=== PATIENT | male | born 1965 | race Caucasian/White ===

== ENCOUNTER 2016-04-29 09:47 | Emergency (ER) | payer OTHER ==
[2016-04-29] MEDS ORDERED: Aspirin TAB* 325 MG PO ONE (10:43)
[2016-04-29] MEDS ORDERED: Aspirin Low Dose CHEW TAB* 81 MG PO ONE ×2 (10:48→10:56)
[2016-04-29] MEDS ORDERED: Aspirin Low Dose CHEW TAB* 81 MG ONE (10:49)
--- NOTE | 2016-04-29 10:51 | UC ---
Lenny Liu Adam, scribed for Chi Brown MD on 04/29/16 at 0954 . Cardiac HPI - HPI Summary HPI Summary: Pt is a 50 year old male presenting with CP. This morning at 03:00 the pt woke up with dull throbbing/aching pain under his left breast and the pain has been constant since then. It is a 2-3/10 in severity. It does not radiate to his jaw or arm but the pt also c/o back pain which has been new in the past couple of days. The CP is not worse with breathing or changes in position. He has had sharp chest pain in the past that could be musculoskeletal but nothing like this before. Pt also c/o cough and rhinorrhea. He denies any numbness, tingling , SOB or N/V/D. PMHx is significant for depression and anxiety including admissions. Pt states that he exercises daily and he denies any pain while he was out walking yesterday. He states that he took appetite suppressant drugs for 3-4 days, ending yesterday morning. He also took himself off Keppra on . His PMHx also includes seizures. He denies any cardiac Hx or any Hx of PNA. He does not currently have a PCP. He is a former tobacco user. Pt states that his BP was 204/131 yesterday. BP at urgent care is 155/101. Pulse ox 99, afebrile, not tachycardic. - History of Current Complaint Stated Complaint: CHEST PAIN Hx Obtained From: Patient Onset/Duration: Sudden Onset, Lasting Hours, Still Present Timing: Constant Initial Severity: Moderate Current Severity: Moderate Pain Intensity: 2 Chest Pain Location: Left Anterior Character: Dull/Aching Aggravating: Nothing Alleviating: Nothing Associated Signs & Symptoms: Positive: Cough - Allergy/Home Medications Allergies/Adverse Reactions: Allergies Allergy/AdvReac Type Severity Reaction Status Date / Time Aripiprazole [From Abilify] Allergy Unknown Verified 04/29/16 10:04 Reaction Details Lamotrigine [From Lamictal] Allergy Unknown Verified 04/29/16 10:04 Reaction Details Ziprasidone [From Geodon] Allergy Unknown Verified 04/29/16 10:04 Reaction Details Home Medications: Home Medications Appetite Suppressant 04/29/16 [History] Bupropion XL (NF) [Wellbutrin XL (NF)] 1 tab PO DAILY 04/29/16 [History Confirmed 04/29/16] Fluoxetine HCl [Prozac] 1 tab PO 04/29/16 [History] Fluoxetine HCl [Prozac] 1 tab PO 04/29/16 [History] Ibuprofen [Advil] 3 tab PO PRN 04/29/16 [History] Levetiracetam [Keppra-] 1 tab PO BID 04/29/16 [History Confirmed 04/29/16] Mirtazapine [Remeron] 1 tab PO 04/29/16 [History] Pantoprazole TAB (NF) [Protonix TAB (NF)] 1 tab PO DAILY 04/29/16 [History Confirmed 04/29/16] Zolpidem Tartrate [Ambien] 1 tab PO 04/29/16 [History] PMH/Surg Hx/FS Hx/Imm Hx Endocrine History Of: Denies: Diabetes, Thyroid Disease Cardiovascular History Of: Reports: Hypertension - boderline no medication Denies: Cardiac Disorders, Pacemaker/ICD, Congestive Heart Failure, Deep Vein Thrombosis Respiratory History Of: Denies: COPD, Asthma, Pneumonia, Pulmonary Embolism GI/ History Of: Denies: Ulcer, Gastrointestinal Bleed, Gall Bladder Disease, Kidney Stones Neurological History Of: Reports: Seizures Denies: TIA, CVA, Dementia Psychological History Of: Reports: Anxiety, Depression Denies: Bipolar Disorder, Schizophrenia Cancer History Of: Denies: Lung Cancer Other History Of: Negative For: Anticoagulant Therapy - Surgical History Surgical History: Yes Surgery Procedure, Year, and Place: left knee - Family History Known Family History: Positive: Other - Depression, EtOH abuse. - Social History Occupation: Unemployed Lives: Alone Alcohol Use: None Alcohol Amount: pt states none Substance Use Type: Prescribed Substance Use Comment - Amount & Last Used: hx of poly-Rx abuse Smoking Status (MU): Former Smoker Type: Cigarettes Amount Used/How Often: 5-10 cigs a day Have You Smoked in the Last Year: No When Did the Patient Quit Smoking/Using Tobacco: 2006 - Immunization History Most Recent Influenza Vaccination: Never Most Recent Tetanus Shot: Unsure Most Recent Pneumonia Vaccination: Never Review of Systems ENT: Nasal Discharge Respiratory: Cough Cardiovascular: Chest Pain Gastrointestinal: Negative Musculoskeletal: Myalgia - Back Neurological: Negative All Other Systems Reviewed And Are Negative: Yes Physical Exam Triage Information Reviewed: Yes Appearance: Well-Appearing, No Pain Distress, Well-Nourished Vital Signs: Initial Vital Signs Temp 98.4 F 04/29/16 09:55 Pulse 87 04/29/16 09:55 Resp 18 04/29/16 09:55 BP 155/101 04/29/16 09:55 Pulse Ox 99 04/29/16 09:55 Eyes: Positive: Conjunctiva Clear ENT: Positive: Hearing grossly normal, Pharynx normal, TMs normal. Negative: Muffled/hoarse voice Neck: Positive: Supple, No Lymphadenopathy Respiratory: Positive: Chest non-tender, Lungs clear, Normal breath sounds, No respiratory distress Cardiovascular: Positive: RRR, No Murmur Abdomen Description: Positive: Nontender, No Organomegaly, Soft Musculoskeletal: Positive: Strength Intact, ROM Intact Neurological: Positive: Alert Psychological: Positive: Age Appropriate Behavior Skin: Negative: rashes Diagnostics - EKG Cardiac Rate: NL - 86 BPM Cardiac Rhythm: Sinus: Normal - 09:50 - Assessment/Plan Course Of Treatment: EKG showed no acute ischemia. I discussed the patient's condition with the patient. Althought he is at low risk for a cardiovascular event, the fact that his pain has been present for 8 hours and that this is an unusal pain for him with no obvious musculoskeletal cause requires that further testing rule out a cardiac or respiratory event. - Differential Diagnoses - Chest Pain Differential Diagnosis/HQI/PQRI: Other: - Musculoskeletal pain vs cardiovascular based pain - Clinical Impression Provider Diagnoses: Atypical Chest Pain Discharge - Discharge Plan Condition: Stable Disposition: [facility] Discharge Disposition Comment: To [facility] ED Referrals: No Primary Care Phys,NOPCP [Primary Care Provider] - Additional Instructions: DISCUSSED: LOW RISK CHEST PAIN. TO ED FOR FURTHER EVALUATION AND TREATMENT. The documentation as recorded by the Lenny landry Adam accurately reflects the service I personally performed and the decisions made by me, Chi Brown MD.
[2016-04-29 11:20] VITALS: BP 152/99
== END 2016-04-29 11:21 | disposition short-term general hospital (02) ==
LOC: UCEAST 09:47
DX: R07.89 Other chest pain (principal); Z87.891 Personal history of nicotine dependence
CPT/HCPCS: 93005; 99214; A9270-GY; G0463

== ENCOUNTER 2016-04-29 12:00 | Observation (INO) | payer OTHER ==
[2016-04-29 12:54] LABS: Hematocrit 38 % (42-52); Hemoglobin 12.6 g/dl (14.0-18.0); Mean Corpuscular HGB Conc 33 g/dl (31-36); Mean Corpuscular Hemoglobin 26 pg (27-31); Mean Corpuscular Volume 78 fL (80-94); Red Cell Distribution Width 16 % (10.5-15); White Blood Count 9.8 10^3/ul (3.5-10.8)
[2016-04-29 12:55] LABS: Comments Flag Yes
[2016-04-29 12:56] LABS: Add Diff/Slide Review? Slide Review Added
--- NOTE | 2016-04-29 13:04 | RAD ---
INDICATION: Chest pain. COMPARISON: Comparison is made with prior study from September 10, 2015. TECHNIQUE: A portable view of the chest was obtained. FINDINGS: Cardiac and mediastinal contours appear to be within normal limits. The lungs are clear. No pleural effusion is seen. IMPRESSION: NO EVIDENCE FOR ACUTE DISEASE.
[2016-04-29 13:13] LABS: Mean Platelet Volume 8 um3 (7.4-10.4)
[2016-04-29 13:22] LABS: TSH (Thyroid Stimulating Horm) 2.67 mcIU/mL (0.34-5.60)
[2016-04-29 13:37] LABS: Albumin 3.9 g/dL (3.2-5.2); BUN/Creatinine Ratio 12.2 (8-20); C Reactive Protein 32.49 mg/L (< 5.00); Calcium 9.6 mg/dL (8.6-10.3); EGFR African American 126.9 (>60); EGFR Non-African American 98.7 (>60); Globulin 4.6 g/dL (2-4); Total Bilirubin 0.5 mg/dL (0.2-1.0); Total Protein 8.5 g/dL (6.4-8.9)
[2016-04-29 14:31] LABS: Troponin I 0.04 ng/mL (<0.04)
[2016-04-29] MEDS ORDERED: clonazePAM TAB(*) 1 MG PO ONE (14:49)
[2016-04-29] MEDS ORDERED: Nitroglycerin TAB 0.4 MG* 0.4 MG TAB SL ONE (14:49)
[2016-04-29] MEDS: NS 0.9% 1000 ML* 1,000 ML IV SCH ×2 (15:48→23:25)
[2016-04-29] MEDS ORDERED: Zolpidem TAB* 10 MG PO PRN (15:49)
[2016-04-29] MEDS ORDERED: clonazePAM TAB(*) 0.5 MG ONE (15:55)
[2016-04-29] MEDS: Metoprolol Tartrate TAB* 25 MG PO SCH ×2 (16:00→21:23)
[2016-04-29] MEDS ORDERED: clonazePAM TAB(*) 0.5 MG PO ONE (16:00)
--- NOTE | 2016-04-29 16:00 | ED ---
Remy Liu Anna, scribed for Gab Frausto MD on 04/29/16 at 1448 . HPI Chest Pain - HPI Summary HPI Summary: Patient is a 50 y/o male coming to [facility] presenting with sudden onset of constant, dull, throbbing chest pain that began at 100 this morning. The pain is of severity 5/10. He took Advil and went back to sleep. He woke up again at 300 with the same pain in the chest. He had taken appetite suppressant pills recently, 2 four days ago, none three days ago, one two days ago and one yesterday. He reports that this often results in high blood pressure for him, peaking at 204/131. Denies nausea, SOB. He took 4 Aspirin when he was seen at [facility]. The pain is exacerbated by deep breaths. He has high triglycerides and high cholesterol. At baseline, he has occasional sharp angina. His current pain is different. His family history is significant for HTN. - History of Current Complaint Chief Complaint: EDChestPainROMI Time Seen by Provider: 04/29/16 14:36 Hx Obtained From: Patient - Additional Pertinent History Primary Care Physician: [id number] - Allergy/Home Medications Allergies/Adverse Reactions: Allergies Allergy/AdvReac Type Severity Reaction Status Date / Time Aripiprazole [From Abilify] Allergy Unknown Verified 04/29/16 10:04 Reaction Details Lamotrigine [From Lamictal] Allergy Unknown Verified 04/29/16 10:04 Reaction Details Ziprasidone [From Geodon] Allergy Unknown Verified 04/29/16 10:04 Reaction Details PMH/Surg Hx/FS Hx/Imm Hx Endocrine/Hematology History: Denies: Hx Anticoagulant Therapy, Hx Blood Disorders, Hx Blood Transfusions, Hx Bone Marrow Disease, Hx Diabetes, Hx Systemic Lupus Erythematosus, Hx Sickle Cell Disease, Hx Thyroid Disease, Hx Anemia, Hx Unexplained Bleeding, Other Endocrine/Hematological Disorders Cardiovascular History: Reports: Hx Hypertension - boderline no medication Denies: Hx Aneurysm, Hx Angina, Hx Auto Implanted Cardiovert Defib, Hx Cardiac Arrest, Hx Cardiomegaly, Hx Congenital Heart Disease, Hx Congestive Heart Failure, Hx Coronary Artery Disease, Hx Deep Vein Thrombosis, Hx Embolism , Hx Hypercholesterolemia, Hx Hypotension, Hx Pacemaker/ICD, Hx Peripheral Vascular Disease, Hx Rheumatic Fever, Hx Syncope, Hx Valvular Heart Disease, Other Cardiovascular Problems/Disorders Respiratory History: Reports: Hx Seasonal Allergies Denies: Hx Asthma, Hx Chronic Bronchitis, Hx Chronic Obstructive Pulmonary Disease (COPD), Hx Cystic Fibrosis, Hx Lung Cancer, Hx Pleural Effusion, Hx Pneumonia, Hx Pulmonary Edema, Hx Pulmonary Embolism, Hx Sleep Apnea, Other Respiratory Problems/Disorders GI History: Reports: Hx Irritable Bowel - IBS Denies: Hx Cirrhosis, Hx Crohn's Disease, Hx Diverticulosis, Hx Gall Bladder Disease, Hx Gastroesophageal Reflux Disease, Hx Gastrointestinal Bleed, Hx Hiatal Hernia, Hx Jaundice, Hx Obstructive Bowel, Hx Ileostomy, Hx Pyloric Stenosis, Hx Ulcer, Other GI Disorders History: Reports: Other Problems/Disorders - States frequencey and sometimes inc of urine Denies: Hx Acute Renal Failure, Hx Benign Prostatic Hyperplasia, Hx Chronic Renal Failure, Hx Dialysis, Hx Kidney Infection, Hx Kidney Stones Musculoskeletal History: Reports: Hx Arthritis - hands, Hx Back Problems - injury to tailbone when 13, (no chronic pain) Denies: Hx Bursitis, Hx Congenital Bone Abnormalities, Hx Fibromyalgia, Hx Gout, Hx Orthopedic Injury, Hx Osteoporosis, Hx Scoliosis, Hx Tendonitis, Other Musculoskeletal History Sensory History: Reports: Hx Contacts or Glasses - contacts, Hx Vision Problem - corrected with lenses Denies: Hx Cataracts, Hx Eye Injury, Hx Eye Prosthesis, Hx Glaucoma, Hx Legally Blind, Hx Macular Degeneration, Hx Deafness, Hx Hearing Aid, Hx Hearing Problem, Other Sensory Impairments Opthamlomology History: Reports: Hx Contacts or Glasses - contacts, Hx Vision Problem - corrected with lenses Denies: Hx Cataracts, Hx Eye Injury, Hx Eye Prosthesis, Hx Glaucoma, Hx Legally Blind, Hx Macular Degeneration, Other Sensory Impairments Neurological History: Reports: Hx Headaches - minor once every 6 months, Hx Seizures, Other Neuro Impairments/Disorders - Pt. states new onset of poor hand and feet circulation Denies: Hx Dementia, Hx Developmental Delay, Hx Nerve Disease, Hx Spinal Cord Injury, Hx Transient Ischemic Attacks (TIA) Psychiatric History: Reports: Hx Anxiety, Hx Attention Deficit Hyperactivity Disorder, Hx Depression, Hx Panic Disorder - with anxiety, medicated for mri, Hx Inpatient Treatment, Hx Community Mental Health Tx, Hx Substance Abuse - pt denies; hx states polysubstance abuse, Other Psychiatric Issues/Disorders Denies: Hx Eating Disorder, Hx Post Traumatic Stress Disorder - unknown, Hx Schizophrenia, Hx Bipolar Disorder, Hx Suicide Attempt - Thoughts only, Hx of Violent Episodes Against Others - Surgical History Surgery Procedure, Year, and Place: left knee Hx Anesthesia Reactions: No - Immunization History Date of Tetanus Vaccine: unsure Date of Influenza Vaccine: never Infectious Disease History: Reports: Hx Shingles - in 1980 Denies: Hx Clostridium Difficile, Hx Hepatitis, Hx Human Immunodeficiency Virus (HIV), Hx of Known/Suspected MRSA, Hx Tuberculosis, Hx Known/Suspected VRE , Hx Known/Suspected VRSA, History Other Infectious Disease, Traveled Outside the [place] in Last 30 Days - Family History Known Family History: Positive: Hypertension, Other - Depression, EtOH abuse. - Social History Alcohol Use: None Alcohol Amount: pt states none Hx Substance Use: Yes Substance Use Type: Reports: Prescribed Substance Use Comment - Amount & Last Used: hx of poly-Rx abuse Hx Tobacco Use: Yes Smoking Status (MU): Former Smoker Type: Cigarettes Amount Used/How Often: 5-10 cigs a day Have You Smoked in the Last Year: No Review of Systems Positive: Chest Pain Negative: Shortness Of Breath Negative: Nausea All Other Systems Reviewed And Are Negative: Yes Physical Exam Triage Information Reviewed: Yes Vital Signs On Initial Exam: Initial Vitals Resp BP 11 157/99 04/29/16 12:17 04/29/16 12:17 Vital Signs Reviewed: Yes Appearance: Positive: Well-Appearing, No Pain Distress Skin: Positive: Warm, Skin Color Reflects Adequate Perfusion, Dry Head/Face: Positive: Normal Head/Face Inspection Eyes: Positive: EOMI, SAQIB ENT: Positive: Normal ENT inspection Neck: Positive: Supple, Nontender Respiratory/Lung Sounds: Positive: Clear to Auscultation, Breath Sounds Present Cardiovascular: Positive: RRR Abdomen Description: Positive: Nontender, Soft Bowel Sounds: Positive: Present Musculoskeletal: Positive: Normal, Strength/ROM Intact Neurological: Positive: Normal, Sensory/Motor Intact, Alert, Oriented to Person Place, Time Psychiatric: Positive: Affect/Mood Appropriate, Anxious - slightly Diagnostics - Vital Signs Vital Signs Pulse Resp BP Pulse Ox 04/29/16 15:48 78 18 168/107 98 04/29/16 15:30 78 17 156/97 98 04/29/16 15:17 77 13 99 04/29/16 15:00 147/131 04/29/16 14:24 87 29 98 04/29/16 14:00 84 17 168/108 97 04/29/16 13:34 84 17 147/104 97 04/29/16 13:00 84 17 150/105 97 04/29/16 12:30 83 17 158/114 97 04/29/16 12:17 11 157/99 - Laboratory Lab Results: Lab Results 04/29/16 04/29/16 04/29/16 Range/Units 12:25 12:25 12:25 WBC 9.8 (3.5-10.8) 10^3/ul RBC 4.90 (4.0-5.4) 10^6/ul Hgb 12.6 L (14.0-18.0) g/dl Hct 38 L (42-52) % MCV 78 L (80-94) fL MCH 26 L (27-31) pg MCHC 33 (31-36) g/dl RDW 16 H (10.5-15) % Plt Count 243 (150-450) 10^3/ul MPV 8 (7.4-10.4) um3 Neut % (Auto) 69.0 (38-83) % Lymph % (Auto) 17.1 L (25-47) % Garrard % (Auto) 9.7 H (1-9) % Eos % (Auto) 3.0 (0-6) % Baso % (Auto) 1.2 (0-2) % Absolute Neuts (auto) 6.7 (1.5-7.7) 10^3/ul Absolute Lymphs (auto) 1.7 (1.0-4.8) 10^3/ul Absolute Monos (auto) 0.9 H (0-0.8) 10^3/ul Absolute Eos (auto) 0.3 (0-0.6) 10^3/ul Absolute Basos (auto) 0.1 (0-0.2) 10^3/ul Absolute Nucleated RBC 0.02 10^3/ul Nucleated RBC % 0.2 INR (Anticoag Therapy) 0.97 (0.89-1.11) APTT 26.0 (26.0-36.3) seconds D-Dimer, Quantitative 212 (Less Than 230) ng/mL Sodium 135 (133-145) mmol/L Potassium 4.0 (3.5-5.0) mmol/L Chloride 104 (101-111) mmol/L Carbon Dioxide 25 (22-32) mmol/L Anion Gap 6 (2-11) mmol/L BUN 10 (6-24) mg/dL Creatinine 0.82 (0.67-1.17) mg/dL Est GFR ( Amer) 126.9 (>60) Est GFR (Non-Af Amer) 98.7 (>60) BUN/Creatinine Ratio 12.2 (8-20) Glucose 84 (70-100) mg/dL Lactic Acid (0.5-2.0) mmol/L Calcium 9.6 (8.6-10.3) mg/dL Magnesium 2.0 (1.9-2.7) mg/dL Total Bilirubin 0.50 (0.2-1.0) mg/dL AST 43 H (13-39) U/L ALT 33 (7-52) U/L Alkaline Phosphatase 74 (34-104) U/L Total Creatine Kinase 319 H (10-223) U/L CK-MB (CK-2) 16.3 H (0.6-6.3) ng/mL Troponin I 0.04 H* (<0.04) ng/mL C-Reactive Protein 32.49 H (< 5.00) mg/L Total Protein 8.5 (6.4-8.9) g/dL Albumin 3.9 (3.2-5.2) g/dL Globulin 4.6 H (2-4) g/dL Albumin/Globulin Ratio 0.8 L (1-3) Lipase 17 (11.0-82.0) U/L TSH 2.67 (0.34-5.60) mcIU/mL 04/29/16 Range/Units 12:25 WBC (3.5-10.8) 10^3/ul RBC (4.0-5.4) 10^6/ul Hgb (14.0-18.0) g/dl Hct (42-52) % MCV (80-94) fL MCH (27-31) pg MCHC (31-36) g/dl RDW (10.5-15) % Plt Count (150-450) 10^3/ul MPV (7.4-10.4) um3 Neut % (Auto) (38-83) % Lymph % (Auto) (25-47) % Garrard % (Auto) (1-9) % Eos % (Auto) (0-6) % Baso % (Auto) (0-2) % Absolute Neuts (auto) (1.5-7.7) 10^3/ul Absolute Lymphs (auto) (1.0-4.8) 10^3/ul Absolute Monos (auto) (0-0.8) 10^3/ul Absolute Eos (auto) (0-0.6) 10^3/ul Absolute Basos (auto) (0-0.2) 10^3/ul Absolute Nucleated RBC 10^3/ul Nucleated RBC % INR (Anticoag Therapy) (0.89-1.11) APTT (26.0-36.3) seconds D-Dimer, Quantitative (Less Than 230) ng/mL Sodium (133-145) mmol/L Potassium (3.5-5.0) mmol/L Chloride (101-111) mmol/L Carbon Dioxide (22-32) mmol/L Anion Gap (2-11) mmol/L BUN (6-24) mg/dL Creatinine (0.67-1.17) mg/dL Est GFR ( Amer) (>60) Est GFR (Non-Af Amer) (>60) BUN/Creatinine Ratio (8-20) Glucose (70-100) mg/dL Lactic Acid 1.0 (0.5-2.0) mmol/L Calcium (8.6-10.3) mg/dL Magnesium (1.9-2.7) mg/dL Total Bilirubin (0.2-1.0) mg/dL AST (13-39) U/L ALT (7-52) U/L Alkaline Phosphatase (34-104) U/L Total Creatine Kinase (10-223) U/L CK-MB (CK-2) (0.6-6.3) ng/mL Troponin I (<0.04) ng/mL C-Reactive Protein (< 5.00) mg/L Total Protein (6.4-8.9) g/dL Albumin (3.2-5.2) g/dL Globulin (2-4) g/dL Albumin/Globulin Ratio (1-3) Lipase (11.0-82.0) U/L TSH (0.34-5.60) mcIU/mL Result Diagrams: 04/29/16 12:25 04/29/16 12:25 Lab Statement: Any lab studies that have been ordered have been reviewed, and results considered in the medical decision making process. - Radiology CXR Xray Interpretation: No Acute Changes Radiology Interpretation Completed By: Radiologist Chest Pain Course/Dx - Course Assessment/Plan: DISCUSSED RESULTS WITH PATIENT. ADMIT HOSPITALIST STABLE. - Diagnoses Provider Diagnoses: Chest pain - Provider Notifications Discussed Care Of Patient With: Dr. Falk (hospitalist) at 14:52. Accepts pt for admission. Discharge - Discharge Plan Condition: Stable Disposition: ADMITTED TO [facility] Referrals: No Primary Care Phys,NOPCP [Primary Care Provider] - The documentation as recorded by the Remy landry Anna accurately reflects the service I personally performed and the decisions made by me, Gab Frausto MD.
[2016-04-29 16:29] LABS: Troponin I 0.04 ng/mL (<0.04)
[2016-04-29] MEDS ORDERED: Atorvastatin* 80 MG TAB PO SCH (17:00)
[2016-04-29] MEDS: Nitroglycerin 2% OINT* 1 GM PAK TOPICAL SCH ×2 (19:28→23:52)
[2016-04-29] MEDS ORDERED: diPHENhydraMINE PO* 50 MG PO PRN (20:39)
--- NOTE | 2016-04-29 20:41 | HP ---
HISTORY AND PHYSICAL: DATE OF ADMISSION: 04/29/16 PRIMARY CARE PROVIDER: Dr. Quezada. ATTENDING PHYSICIAN WHILE IN THE HOSPITAL: Destinee Falk DO *(report being dictated by Tony Hinds NP). CHIEF COMPLAINT: Chest pain. HISTORY OF PRESENT ILLNESS: Mr. Hogue is a 50-year-old male patient that states that for the last 1 to 2 weeks he has been taking [id number] dietary pills, which do contain caffeine and a derivative of ephedrine, it looks like. He says that he has noticed that since doing this, his blood pressure has been elevated and he has been checking it at [facility] and at times it has been up in the 200s for at least the last couple weeks. He says that he went for a walk on Thursday over to [facility], [place] and he was walking [place] from [address] up to the [place] of the [place]. He had to stop 3 times doing this, but he did it. He said it was 11 degrees that day. He never had any chest pain and he went to [facility] to check his blood pressure, it was 235/100 and he says usually after exercise his blood pressure is better, so at that point he decided to stop taking the diet pills. He has a history of ADHD, history of anxiety, depression, hypertension, and psychosis in the past. He was concerned though today again because he woke up around 3 in the morning, he had pressure underneath his left chest and he described it as a dull ache. It got worse with taking a deep breath and it was tender to palpation. He got up, he took 4 Advil, he was able to go back to sleep, but he woke up again and started having some more chest discomfort and it was not going away, so he decided to come in. He had no associated symptoms of nausea, shortness of breath or diaphoresis. He says that when he exerted himself the other day, he never got any chest discomfort and actually, he did quite well. The patient was concerned, he came in and was evaluated in the ER. It was found that his cardiac enzymes were indeterminate, they are mildly elevated, so the hospitalist service was asked to evaluate for admission. He actually initially went to [facility] and then he was transferred here. PAST MEDICAL HISTORY: Significant for: 1. ADHD. 2. Anxiety. 3. Depression. 4. Hypertension. 5. Psychosis. PAST SURGICAL HISTORY: He has had a history of knee surgery. HOME MEDICATIONS: Include: 1. Keppra 1000 mg p.o. b.i.d., but when questioning the patient about this, he states he is not taking this anymore, he stopped it 6 weeks ago. He says his provider told him that he could stop this if he wanted to. 2. Klonopin 2 mg p.o. b.i.d. 3. Ambien 10 mg at bedtime as needed. 4. Protonix 40 mg daily. 5. Remeron, he takes 45 mg at bedtime. 6. Advil 600 mg p.o. twice a day as needed. 7. Vistaril 50 mg p.o. t.i.d. 8. Prozac 40 mg in the morning, 20 mg at noon. 9. Bupropion 300 mg p.o. daily. ALLERGIES TO MEDICATIONS: Include ABILIFY, LAMICTAL, and GEODON. FAMILY HISTORY: Mother had a heart disease but after the age of 70 and his father had a history of cancer. SOCIAL HISTORY: He does live alone. He does not drink alcohol. He does not smoke. Surrogate decision maker is his friend, Aaron. REVIEW OF SYSTEMS: There is no documented fever. He denied having any significant weight change. There was no double vision. There is no ear discharge. There is no rhinorrhea. There is no sore throat. No thyroid enlargement. There is chest pain per my HPI. There is no orthopnea. No nocturnal dyspnea. There is no abdominal pain. No nausea. No vomiting. No dysuria. No frequency. No loss of consciousness. No pruritus and no skin ulcerations. Review of 14 systems completed, all others negative. PHYSICAL EXAMINATION GENERAL: At this time, Mr. Hogue is a 50-year-old male patient. He does not appear to be in any acute distress. He is sitting in the ER stretcher. He is awake and he is alert, well nourished, well developed. VITAL SIGNS: Blood pressure 158/107 with a pulse of 82, respirations 18, O2 sat 96%, and temperature pending. HEENT: Head: Atraumatic, normocephalic. Eyes: EOMs are intact. Sclerae anicteric and not pale. Throat: Oral mucosa appears to be moist. No oropharyngeal erythema. NECK: Supple. LUNGS: Clear to auscultation bilaterally. No wheezes, rales, or rhonchi. HEART: Sounds S1, S2. Regular rate and rhythm. No murmurs, rubs, or gallops. ABDOMEN: Soft, flat, nontender. Bowel sounds present. EXTREMITIES: Pulses 2+ throughout. He had no peripheral edema. He is able to move all 4 extremities with 5/5 strength. NEUROLOGIC: The patient is awake, he is alert, he is oriented x3. SKIN: Intact. LABORATORY DATA AND DIAGNOSTIC STUDIES: Today revealed WBC of 9.8, RBC of 4.90 , hemoglobin 12.6, hematocrit of 38, platelet count 243. His INR was 0.97. PTT of 26. D-dimer was 212. Sodium 135, potassium 4.0, chloride of 105, bicarb 25, BUN 10, creatinine of 0.82, glucose 84, lactic 1, calcium 9.6, magnesium 2.0. Total bili 0.5, AST 43, ALT 33, alk phos 74, CK 319, CK-MB 16.3. Troponin 0.04. CRP of 32. Albumin is 3.9. Lipase 17. TSH 2.67. He had an EKG at [facility]. EKG showed a normal sinus rhythm, rate of [address] elevations or T-wave inversions were noted. It was reviewed with previous EKG, it is similar. Previous EKG showed sinus tachycardia. Chest x-ray obtained today revealed no evidence for acute disease. Old medical records were reviewed. ASSESSMENT AND PLAN: Mr. Hogue is a 50-year-old male patient coming in to the ER today with complaints of chest discomfort in the setting of taking dietary pills and hypertension. He will be admitted under observation status for: 1. Chest discomfort: Again, some of this is atypical in the sense that the pain is worse with respiration and it is reproducible. However, the fact that he does have a blood pressure again that were in the 200,s as reported and the fact that his troponins are bumped, one must be concerned of acute coronary syndrome. I do think the troponin is probably elevated from his uncontrolled blood pressure. My plan at this point is to go ahead and put him on an aspirin , statin, beta lul, and nitrate. Blood pressure is in the 160, I would like to get it down to 140 systolically and diastolic less than 100 and continue to follow. I am going to get an echo and cycle his troponins. I did touch base with Cardiology. They recommended they would like to see the echo prior to ordering a stress test to see what the LV function is, see how much left ventricular hypertrophy he has and depending on these results, proceed with stress test. My plan is to leave the patient n.p.o. after midnight for possible stress in the morning depending on the echo. We will get the echo done first and then try to get a stress test done for the patient. 2. Hypertension: Again, I started him on a beta lul. In addition to this , I started him on some nitrates. We will follow. 3. History of attention deficit hyperactivity disorder, anxiety, depression: We will continue medications as prescribed. 4. DVT prophylaxis: He is moderate risk. He will be placed on heparin subcu. 5. Code status: Full code. 6. Fluids, electrolytes, and nutrition: He can have a heart healthy diet up until midnight tonight. I'm waiting for his repeat set of enzymes and EKG and we will continue to follow. I will check a lipid panel and an A1c in the morning. TIME SPENT: Time spent on the admission was 60 minutes; greater than half the time was spent [id number] with the patient obtaining my history and physical, other half of the time spent going over the plan of care with the patient and implementing plan of care. I did discuss the plan of care with my attending, Dr. Falk; she is in agreement. TONY HINDS NP CC: Dr. Quezada* [id number]/[facility] #: [id number] RACHAEL
[2016-04-29] MEDS ORDERED: Mirtazapine TAB* 15 MG PO SCH ×2 (21:00)
[2016-04-29] MEDS: Heparin VIAL(*) 5000 UNITS/ML VIAL (FIVE THOUSAND) SUBCUT SCH (21:26)
[2016-04-30] MEDS: Acetaminophen TAB* 325 MG PO PRN ×3 (02:51→10:54)
[2016-04-30 03:15] LABS: Urine Bacteria Absent (Absent); Urine Bilirubin Negative (Negative); Urine Glucose Negative (Negative); Urine Nitrite Negative (Negative)
[2016-04-30 05:06] LABS: Hematocrit 34 % (42-52); Hemoglobin 11.1 g/dl (14.0-18.0); Mean Corpuscular HGB Conc 32 g/dl (31-36); Mean Corpuscular Hemoglobin 25 pg (27-31); Mean Corpuscular Volume 78 fL (80-94); Mean Platelet Volume 8 um3 (7.4-10.4); Red Blood Count 4.37 10^6/ul (4.0-5.4); Red Cell Distribution Width 16 % (10.5-15); White Blood Count 7.5 10^3/ul (3.5-10.8)
[2016-04-30 05:20] LABS: BUN/Creatinine Ratio 14.9 (8-20); Calcium 8.5 mg/dL (8.6-10.3); EGFR African American 118.5 (>60); EGFR Non-African American 92.1 (>60); HDL Cholesterol 29.6 mg/dL
[2016-04-30] MEDS: Heparin VIAL(*) 5000 UNITS/ML VIAL (FIVE THOUSAND) SUBCUT SCH ×2 (05:23→14:27)
[2016-04-30] MEDS: NS 0.9% 1000 ML* 1,000 ML IV SCH (06:26)
[2016-04-30] MEDS: clonazePAM TAB(*) 1 MG PO SCH ×3 (06:59→14:26)
[2016-04-30] MEDS ORDERED: Omeprazole CAP* 20 MG PO SCH (07:30)
[2016-04-30] MEDS ORDERED: Ondansetron INJ* 2 MG/ML VIAL IV PRN (08:21)
[2016-04-30] MEDS ORDERED: Aspirin Low Dose CHEW TAB* 81 MG PO SCH (09:00)
[2016-04-30] MEDS ORDERED: FLUoxetine CAP* 20 MG PO SCH ×2 (09:00→12:00)
[2016-04-30] MEDS ORDERED: BuPROPion XL* 300 MG TAB.XL PO SCH (09:00)
[2016-04-30] MEDS: Nitroglycerin 2% OINT* 1 GM PAK TOPICAL SCH (09:29)
[2016-04-30] MEDS ORDERED: Regadenoson* 0.4 MG/5 ML SYRINGE ONE (12:20)
[2016-04-30] MEDS ORDERED: Aminophylline IV* 25 MG/ML 10 ML VIAL ONE (12:20)
--- NOTE | 2016-04-30 12:51 | ECHO ---
Amended Report Patient: LUCÍA OLIVEROS [facility] Rec#: [id number] : 1965 Date: 04/30/2016 Age: 50y Height: 175.26 cm / 69.0 in Weight: 85.73 kg / 188.9 lbs Sex: M BSA: 2.02 Room#: 447 Admit Date#: 04/29/2016 Type: Inpatient Referring: Tony Hinds NP Reading: Shannan Palomo MD Campaign Fundraiser: Melonie Finney RDCS Campaign Fundraiser: [employer] Transthoracic Echocardiogram Indication: CP BP: 120/73 HR: 63 Rhythm: NSR Findings History: ADHA, anxiety-depression,HTN,psychosis. Technical Comments: The study quality is good. Completed at 1055. Left Ventricle: The left ventricular chamber size is normal. Mild concentric left ventricular hypertrophy is observed. Global left ventricular wall motion and contractility are within normal limits. Left ventricular systolic function is at the lower limits of normal. The estimated ejection fraction is 50-55%. Abnormal left ventricular diastolic function is observed. Left Atrium: The left atrial chamber size is normal. Right Ventricle: The right ventricular cavity size is normal. The right ventricular global systolic function is low normal. Right Atrium: The right atrial cavity size is normal. Aortic Valve: The aortic valve is trileaflet. There is no evidence of aortic regurgitation. There is no evidence of aortic stenosis. Mitral Valve: The mitral valve leaflets appear normal. There is a trace of mitral regurgitation.small posterior jet. There is no evidence of mitral stenosis. Tricuspid Valve: The tricuspid valve leaflets are normal. There is mild tricuspid regurgitation. No pulmonary hypertension is noted. There is no tricuspid stenosis. Pulmonic Valve: The pulmonic valve appears normal. There is a trace pulmonic regurgitation. There is no pulmonic stenosis. Pericardium: The pericardium appears normal. Aorta: There is no dilatation of the ascending aorta. There is no dilatation of the aortic arch.Color Doppler shows possible diastolic reversal jet, no pulse/continuous wave Doppler performed. There is no dilation of the aortic root. Pulmonary Artery: The main pulmonary artery appears normal. Venous: The inferior vena cava appears normal in size.near the junction with the RA material within the IVC of mixed echogenicity noted, differential includes thrombus. There is a greater than 50% respiratory change in the inferior vena cava dimension. Conclusions Mild concentric left ventricular hypertrophy is observed. Global left ventricular wall motion and contractility are within normal limits. The estimated ejection fraction is 50-55%. Abnormal left ventricular diastolic function is observed. The right ventricular global systolic function is low normal. There is a trace of mitral regurgitation.small posterior jet. There is mild tricuspid regurgitation. No pulmonary hypertension is noted. Descending aorta near the arch with color Doppler shows possible diastolic reversal jet, no pulse/continuous wave Doppler performed. The inferior vena cava at the junction with the RA shows material within the IVC of mixed echogenicity noted, differential includes thrombus. No prior echo to compare. Will follow up with additional views of the IVC and descending aorta. Addendum: Additional views of the aorta obtained, no evidence of PDA or shunt. Addtional views of the IVC obtained, no definitive evidence of thrombus, most consistent with artifact. Measurements Name Value Normal Range RVIDd (AP) 2D 2.8 cm (0.9 - 2.6) RVDdMajor (2D) 3.5 cm (2.2 - 4.4) RAd ISD 4CH 4.9 cm (3.4 - 4.9) RA (A4C)W 3.4 cm (2.9 - 4.6) IVSd (2D) 1.3 cm (0.6 - 1) LVPWd (2D) 1.2 cm (0.6 - 1) LVIDd (2D) 4.2 cm (3.6 - 5.4) LVIDs (2D) 3.2 cm - LV FS (2D) 24 % (25 - 45) Aortic Annulus 1.9 cm (1.4 - 2.6) Ao root diameter (2D) 3.3 cm (2.1 - 3.5) Ascending Ao 3 cm (2.1 - 3.4) Aortic arch 2.6 cm (1.8 - 3.4) Descending Ao 0.6 cm - LA dimension (AP) 2D 3.4 cm (2.3 - 3.8) LAd ISD 4CH 5.1 cm (2.9 - 5.3) LA ISD 4CH W 3.4 cm (2.5 - 4.5) Name Value Normal Range LA ESV SP 4CH (A/L) 34 ml - LA ESV SP 2CH (A/L) 44 ml - LA ESV BP (A/L) 39 ml - LA ESV BP (A/L) index 19.23 ml/m2 - LA ESV SP 4CH (MOD) 30 ml - LA ESV SP 2CH (MOD) 40 ml - Name Value Normal Range MV E-wave Vmax 0.7 m/sec - MV deceleration time 283 msec - MV A-wave Vmax 0.7 m/sec - MV E:A ratio 0.91 ratio - LV septal e' Vmax 0.09 m/sec - LV lateral e' Vmax 0.08 m/sec - LV E:e' septal ratio 7.78 ratio - LV E:e' lateral ratio 8.75 ratio - Name Value Normal Range AV Vmax 1.2 m/sec - AV VTI 25.4 cm - AV peak gradient 6.17 mmHg - AV mean gradient 3.18 mmHg - LVOT Vmax 0.9 m/sec - LVOT VTI 18.7 cm - LVOT peak gradient 3.25 mmHg - LVOT mean gradient 1.7 mmHg - Name Value Normal Range TR Vmax 2.7 m/sec - TR peak gradient 30 mmHg - RAP 3 mmHg - RVSP 33 mmHg - IVC diameter 2 cm - Name Value Normal Range PV Vmax 0.9 m/sec - PV peak gradient 3.12 mmHg -
--- NOTE | 2016-04-30 13:50 | RAD ---
Edited for charges. INDICATION: Chest pain. COMPARISON: None. TECHNIQUE: 10.520 mCi of Tc-99m Myoview were administered IV. SPECT images of the heart were obtained. Later on the same day, under the direction of Dr. Palomo, the patient was given an IV injection of a pharmacologic stress agent. Subsequently, the patient was given an IV injection of 25.080 mCi Tc-99m Myoview. SPECT images of the heart were obtained and a gated wall motion study was performed. FINDINGS: Gated wall motion images were obtained at stress and demonstrate wall motion to be within normal limits. Calculated left ventricular ejection fraction is 60 % at stress. Estimated LEFT ventricular end diastolic volume is 107 mL. TID 1.17. Based on review of the attenuation corrected and non corrected images the distribution of radiopharmaceutical within the myocardium on the stress and rest images is within normal limits. No fixed or reversible regions of hypoperfusion evident. IMPRESSION: 1. No evidence for stress-induced ischemia or presence of an infarct. 2. Normal LEFT ventricular wall motion and estimated ejection fraction. ASSESSMENT: Low risk Based on imaging criteria from ACC/AHA 2002 Guideline Update for the Management of Patients With Chronic Stable Angina Table 23. Noninvasive Risk Stratification. MTDD
--- NOTE | 2016-04-30 16:38 | DCNOTE ---
Patient seen in the afternoon. Stress test read as low risk although needed to be converted to chemical. Reports no further chest pain. On exam, RRR, s1 and s2 present, no m/g/r, lungs CTA B/L, no w/r/r, abd soft, NTND, BS+ Will discharge home on BP medications as they have been elevated this admission. No evidence of cardiac ischemia. Will need to follow-up with PCP.
[2016-04-30 16:50] VITALS: BP 131/89
--- NOTE | 2016-05-01 10:00 | DS ---
CC: Dr. Quezada DISCHARGE SUMMARY: DATE OF ADMISSION: 04/29/16 DATE OF DISCHARGE: 04/30/16 PRIMARY CARE PHYSICIAN: Dr. Quezada. PRINCIPAL DISCHARGE DIAGNOSES: Chest pain, hypertension. SECONDARY DIAGNOSES: Depression, psychosis, anxiety, ADHD. DISCHARGE MEDICATION REGIMEN: 1. Amlodipine 5 mg by mouth daily. 2. Clonazepam 2 mg by mouth two times daily. 3. Fluoxetine 40 mg by mouth in the morning, 20 mg by mouth at noon. 4. Mirtazapine 30 mg by mouth daily. 5. Zolpidem 10 mg by mouth at bed time as needed for insomnia. 6. Mirtazapine 15 mg by mouth daily. 7. Bupropion 300 mg by mouth daily. 8. Protonix 40 mg by mouth daily. 9. Hydroxyzine 50 mg by mouth 3 times daily. 10. Ibuprofen 600 mg by mouth 2 times daily as needed for pain. 11. Keppra 1000 mg by mouth 2 times daily. STUDIES DURING HOSPITALIZATION: 1. Chest x-ray: Impression: No evidence for acute disease. 2. Transthoracic echocardiogram. Conclusion: Mild ventricular LVH is observed. Mild concentric LV H is observed. Global ventricular wall motion contractility within normal limits. EF is 50-55%. Abnormal left ventricular diastolic function is observed. The right ventricular global systolic fun ction is low normal. There is a trace mitral regurgitation, small posterior jet. There is mild tri cuspid regurgitation. No pulmonary hypertension is noted. Descending aorta near the arch with color Doppler shows possible diastolic reversal jet. No pulse/continuous wave Doppler performed. Inferi or vena cava at the junction with RA shows material within the IVC of mixed echogenicity noted. Dif ferential include thrombus. No prior echo to compare. Will follow up with additional views of IVC and descending aorta. Discussed further with Dr. Palomo, who reevaluated an additional echocardiog soren that was focused that showed no concerning abnormalities. 3. Nuclear cardiac stress test, impression: No evidence for stress induced ischemia or presence of an infarct. Normal left ventricular wall motion. Estimated ejection fraction assessment - low risk . HISTORY OF PRESENT ILLNESS AND HOSPITAL SUMMARY: Please see the full history and physical by Tony corbett NP for full details. Briefly, Mr. Hogue is a 50-year- old male with a past medical hist ory of hypertension as well as a significant psych history who presented to the hospital with chest pain in the setting of recent episodes of hypertension. The patient had a minimally elevated tropon in of 0.04, which was trended and came down. He was monitored on telemetry, and underwent an echoca rdiogram and nuclear cardiac stress that were both normal. However, he was not able to get up to an adequate heart rate on the exercise stress test and needed to be converted to be chemical. His blo od pressure was quite elevated on admission, and he is not on any antihypertensives at home. He had no recurrence of his chest pain and underwent studies as above. He will be discharged home on anti hypertensive medication and will need to follow up with his PCP, Dr. Quezada, for which he has an magaly ointment on 05/05/16. TIME SPENT: Total time spent on this discharge was 40 minutes. This is a summary of the hospitalization. Please see the full medical record for further details. [id number]/[facility] #: [id number]
== END 2016-04-30 17:11 | disposition home or self-care (01) ==
LOC: ED 12:00 → MEDTELE 14:53
PROVIDERS: ADMIT Hospitalist; ATTEND Hospitalist
DX: R07.9 Chest pain, unspecified (principal); I10 Essential (primary) hypertension; F32.9 Major depressive disorder, single episode, unspecified; F41.9 Anxiety disorder, unspecified; F90.9 Attention-deficit hyperactivity disorder, unspecified type; Z79.899 Other long term (current) drug therapy; Z88.8 Allergy status to other drugs, medicaments and biological substances; I51.7 Cardiomegaly
CPT/HCPCS: 36415; 71010; 78452; 80048; 80053; 80061; 81003; 81015; 82550; 82553; 83036; 83605; 83690; 83735; 84443; 84484; 85025; 85379; 85610; 85730; 86140; 93005; 93017; 93306; 94760; 96361; 96372; 96374; 99214; 99284; A9270-GY; A9502; G0378; G0463; J0280; J2405; J2785

== ENCOUNTER 2016-06-09 10:06 | Emergency (ER) | payer OTHER ==
[2016-06-09 10:26] VITALS: BP 134/73
--- NOTE | 2016-06-09 10:39 | UC ---
Back Pain HPI - HPI Summary HPI Summary: 50 y/o male c/o diffuse moderate low back pain which began when the patient woke up this morning. Patient took a long hike yesterday, felt "tightness" in the bilateral low back which does not radiate. Pain is rated as a 5/10 dull ache , aggravated with bending over and leaning forward which makes the pain increase to a 7/10. Pain improved by taking 800mg of Ibuprofen around 0500 this morning. Denies radiating pain, numbness, tingling, or burning sensation in either leg, denies weakness in the lower extremities or changes with urination. - History of Current Complaint Chief Complaint: UCBackPain Stated Complaint: BACK SPASM Hx Obtained From: Patient Onset/Duration: Gradual Onset Timing: Constant Severity Initially: Moderate Severity Currently: Moderate Pain Intensity: 5 Pain Scale Used: 0-10 Numeric Back Pain: Is Diffuse Associated Signs And Symptoms: Negative: Swelling, Bruising, Weakness, Numbness , Tingling, Bladder Incontinence, Bowel Incontinence, Pain with Weight Bearing Related History: Similar Episode Dx As - Low back pain - Risk Factors AAA Risk Factors: Negative TAD Risk Factors: Negative Cauda Equina Risk Factors: Negative Epidural Abscess Risk Factors: Negative - Allergies/Home Medications Allergies/Adverse Reactions: Allergies Allergy/AdvReac Type Severity Reaction Status Date / Time Aripiprazole [From Abilify] Allergy Unknown Verified 06/09/16 10:29 Reaction Details Lamotrigine [From Lamictal] Allergy Unknown Verified 06/09/16 10:29 Reaction Details Ziprasidone [From Geodon] Allergy Unknown Verified 06/09/16 10:29 Reaction Details PMH/Surg Hx/FS Hx/Imm Hx Previously Healthy: Yes Endocrine History Of: Denies: Diabetes, Thyroid Disease Cardiovascular History Of: Reports: Cardiac Disorders - angina, Hypertension - boderline no medication Denies: Pacemaker/ICD, Congestive Heart Failure, Deep Vein Thrombosis Respiratory History Of: Denies: COPD, Asthma, Pneumonia, Pulmonary Embolism GI/ History Of: Denies: Ulcer, Gastrointestinal Bleed, Gall Bladder Disease, Kidney Stones Neurological History Of: Reports: Seizures Denies: TIA, CVA, Dementia Psychological History Of: Reports: Anxiety, Depression Denies: Bipolar Disorder, Schizophrenia Cancer History Of: Denies: Lung Cancer Other History Of: Negative For: Anticoagulant Therapy - Surgical History Surgical History: Yes Surgery Procedure, Year, and Place: left knee 1983 - Family History Known Family History: Positive: Hypertension, Other - Depression, EtOH abuse. - Social History Occupation: Retired Alcohol Use: None Alcohol Amount: pt states none Substance Use Type: None, Prescribed Substance Use Comment - Amount & Last Used: hx of poly-Rx abuse Smoking Status (MU): Former Smoker Type: Cigarettes Amount Used/How Often: 5-10 cigs a day Have You Smoked in the Last Year: No When Did the Patient Quit Smoking/Using Tobacco: 2006 - Immunization History Most Recent Influenza Vaccination: Never Most Recent Tetanus Shot: Unsure Most Recent Pneumonia Vaccination: Never Review of Systems Constitutional: Negative Skin: Negative Eyes: Negative ENT: Negative Respiratory: Negative Cardiovascular: Negative Gastrointestinal: Diarrhea - Patient reports loose stools x"months" and "red blood when I wipe, that saturates the toilet paper," patient states this has been on going for months, reports pain when wiping. Genitourinary: Negative Motor: Negative Neurovascular: Negative Musculoskeletal: Other: - Low back pain Neurological: Negative Psychological: Negative All Other Systems Reviewed And Are Negative: Yes Physical Exam Triage Information Reviewed: Yes Appearance: Well-Appearing, No Pain Distress, Well-Nourished Vital Signs: Initial Vital Signs Temp 98.8 F 06/09/16 10:19 Pulse 92 06/09/16 10:19 Resp 18 06/09/16 10:19 BP 134/73 06/09/16 10:19 Pulse Ox 100 06/09/16 10:19 Vital Signs Reviewed: Yes Eye Exam: Normal Eyes: Positive: Conjunctiva Clear ENT Exam: Normal ENT: Positive: Normal ENT inspection, Hearing grossly normal, Pharynx normal, TMs normal Dental Exam: Normal Dental: Negative: Cervical Lymphadenopathy Neck exam: Normal Neck: Positive: Supple, Nontender, No Lymphadenopathy, Other: - Thyroid nodules Respiratory: Positive: Chest non-tender, Lungs clear, Normal breath sounds, No respiratory distress Cardiovascular: Positive: RRR, No Murmur, Pulses Normal, Brisk Capillary Refill Abdomen Description: Positive: Nontender, No Organomegaly, Soft Bowel Sounds: Positive: Present Musculoskeletal: Positive: Strength Intact, ROM Limited @ - back ROM Neurological Exam: Normal Neurological: Positive: Alert, Muscle Tone Normal, Other: - Normal DTRs, strength in the back and lower extremities fully intact, full ROM in the spine Skin Exam: Normal Skin: Positive: rashes - Additional Comments Rectal exam conducted, no internal or external hemorrhoids on examination, Hemoccult card collected. Back Pain Course/Dx - Differential Dx/Diagnosis Provider Diagnoses: low back strain Discharge - Discharge Plan Condition: Stable Disposition: HOME Prescriptions: Cyclobenzaprine TAB* [Flexeril TAB*] 10 mg PO TID PRN #15 tab PRN Reason: Pain Ketorolac TAB (NF) [Toradol TAB (NF)] 10 mg PO TID #15 tab Patient Education Materials: Low Back Strain (ED) Referrals: Bobo Quezada MD [Primary Care Provider] - As Soon As Possible Additional Instructions: As discussed, follow up with PCP regarding changes in bowel movements and blood in the stool.
[2016-06-09] MEDS ORDERED: Ketorolac INJ* 30 MG/ML 1 ML VIAL IM ONE (10:56)
== END 2016-06-09 11:39 | disposition home or self-care (01) ==
LOC: UCEAST 10:06
DX: S39.012A Strain of muscle, fascia and tendon of lower back, initial encounter (principal); X58.XXXA Exposure to other specified factors, initial encounter; Y93.01 Activity, walking, marching and hiking; Y92.9 Unspecified place or not applicable; K92.1 Melena; Z87.891 Personal history of nicotine dependence
CPT/HCPCS: 82270; 96372; 99212; G0463; J1885

== ENCOUNTER 2016-06-10 07:32 | Emergency (ER) | payer OTHER ==
[2016-06-10 07:51] VITALS: BP 158/81
[2016-06-10] MEDS ORDERED: HYDROcodone/ACETAMIN 5-325 MG* 1 TAB PO ONE (08:31)
--- NOTE | 2016-06-10 09:01 | RAD ---
HISTORY: Back pain, fall COMPARISONS: October 03, 2009 VIEWS: 5 , Frontal, lateral, coned-down lateral sacral, and bilateral oblique views of the lumbar spine. FINDINGS: ALIGNMENT: There is a dextroscoliotic curvature of the spine. VERTEBRAL BODIES: There is mild anterolateral marginal osteophyte formation. JOINTS: There is diffuse facet hypertrophic change, most pronounced at L5-S1 INTERVERTEBRAL DISCS: There is diffuse loss of intervertebral disc height. SOFT TISSUE: Unremarkable. OTHER: The pelvis is unremarkable. The lung bases are clear. IMPRESSION: SCOLIOSIS. DEGENERATIVE DISC DISEASE AND OSTEOARTHRITIS.
--- NOTE | 2016-06-10 09:01 | RAD ---
HISTORY: Back pain, fall COMPARISONS: None VIEWS: 4, Frontal and lateral views of the thoracic spine. FINDINGS: ALIGNMENT: The alignment is normal. VERTEBRAL BODIES: The vertebral body heights are normal. The interpedicular distances are normal. There is mild anterolateral marginal osteophyte formation. JOINTS: Unremarkable. INTERVERTEBRAL DISCS: There is mild diffuse loss of intervertebral disc height. SOFT TISSUE: Unremarkable OTHER: The visualized lungs are clear. IMPRESSION: MILD DEGENERATIVE CHANGES
--- NOTE | 2016-06-10 11:52 | UC ---
Lenny Liu Adam, scribed for Nichol Avalos MD on 06/10/16 at 0742 . Back Pain HPI - HPI Summary HPI Summary: Pt is a 50 year old male presenting with low back pain. He describes the pain as muscle spasms that set on yesterday morning at approximately 03:30 after he rolled off his bed in his sleep and landed on an object (perhaps a jar of peanut -butter. The pain set on immediately. He took 4 ibuprofen and went back to sleep but when he woke up he was still having back spasms. He came to [facility] yesterday where he was discharged with Toradol and Flexeril. He states that the medications failed to alleviate the pain and he had difficulty sleeping last night because of it. The pain is constant, but lying down is more painful than sitting up. Getting in and out of bed is difficult. Leaning forward also aggravates the pain. Pt has also been having some diarrhea. He denies any numbness, tingling, hematuria, or bowel/bladder leakage. Pt notes that he hiked 7 miles the day before the pain set on (he typically hikes about half that distance). He states that he has had back spasms since high school which have always responded well to treatment. He reports FMHx of back problems and he also cites a sledding injury where he "compressed (his) coccyx." He denies any Hx of kidney stones. He reports Hx of rhabdomyolysis which was medication- related and resolved. - History of Current Complaint Stated Complaint: LOWER BACK PAIN Hx Obtained From: Patient Onset/Duration: Lasting Days, Still Present Timing: Constant Severity Initially: Moderate Severity Currently: Moderate Back Pain: Is Discrete @ - Low back Character: Spasmodic Aggravating: Movement - In and out of bed, Bending - Forward Alleviating: Nothing Related History: Similar Episode Dx As - Prior back spasms - Allergies/Home Medications Allergies/Adverse Reactions: Allergies Allergy/AdvReac Type Severity Reaction Status Date / Time Aripiprazole [From Abilify] Allergy Unknown Verified 06/09/16 10:29 Reaction Details Lamotrigine [From Lamictal] Allergy Unknown Verified 06/09/16 10:29 Reaction Details Ziprasidone [From Geodon] Allergy Unknown Verified 06/09/16 10:29 Reaction Details PMH/Surg Hx/FS Hx/Imm Hx Endocrine History Of: Denies: Diabetes, Thyroid Disease Cardiovascular History Of: Reports: Cardiac Disorders - angina, Hypertension - boderline no medication Denies: Pacemaker/ICD, Congestive Heart Failure, Deep Vein Thrombosis Respiratory History Of: Denies: COPD, Asthma, Pneumonia, Pulmonary Embolism GI/ History Of: Denies: Ulcer, Gastrointestinal Bleed, Gall Bladder Disease, Kidney Stones Neurological History Of: Reports: Seizures Denies: TIA, CVA, Dementia Psychological History Of: Reports: Anxiety, Depression Denies: Bipolar Disorder, Schizophrenia Cancer History Of: Denies: Lung Cancer Other History Of: Negative For: Anticoagulant Therapy - Surgical History Surgical History: Yes Surgery Procedure, Year, and Place: left knee 1983 - Family History Known Family History: Positive: Hypertension, Other - Depression, EtOH abuse, back problems. - Social History Occupation: Unemployed Lives: Alone Alcohol Use: None Alcohol Amount: pt states none Substance Use Type: Prescribed Substance Use Comment - Amount & Last Used: hx of poly-Rx abuse Smoking Status (MU): Former Smoker Type: Cigarettes Amount Used/How Often: 5-10 cigs a day Have You Smoked in the Last Year: No When Did the Patient Quit Smoking/Using Tobacco: 2006 - Immunization History Most Recent Influenza Vaccination: Never Most Recent Tetanus Shot: Unsure Most Recent Pneumonia Vaccination: Never Review of Systems Constitutional: Negative Skin: Negative Eyes: Negative ENT: Negative Respiratory: Negative Cardiovascular: Negative Gastrointestinal: Negative Genitourinary: Negative Motor: Negative Neurovascular: Negative Musculoskeletal: Myalgia - Low back Neurological: Negative Psychological: Negative All Other Systems Reviewed And Are Negative: Yes Physical Exam Triage Information Reviewed: Yes Appearance: Well-Nourished Vital Signs: Initial Vital Signs Temp 98.3 F 06/10/16 07:44 Pulse 87 06/10/16 07:44 Resp 18 06/10/16 07:44 BP 158/81 06/10/16 07:44 Pulse Ox 100 06/10/16 07:44 Vital Signs Reviewed: Yes Eye Exam: Normal ENT Exam: Normal Neck exam: Normal Neck: Positive: Nontender Respiratory Exam: Normal Respiratory: Positive: Chest non-tender, Lungs clear, Normal breath sounds, No respiratory distress, No accessory muscle use, Respiratory distress Cardiovascular Exam: Normal Cardiovascular: Positive: RRR, No Murmur, Pulses Normal, Brisk Capillary Refill Abdominal Exam: Normal Abdomen Description: Positive: Nontender, No Organomegaly, Soft Musculoskeletal Exam: Other Neurological Exam: Normal Neurological: Positive: Alert Psychological Exam: Normal Skin Exam: Normal - Additional Comments * Appearance: Well-Nourished * Eye Exam: Normal * ENT Exam: Normal * Neck exam: Normal, No adenopathy appreciated * Respiratory Exam: Normal, no dyspnea, no tachypnea, normal respiratory rate * Cardiovascular Exam: Normal * Cardiovascular: Heart rate regular, good general skin color, good capillary refill * Abdominal Exam: Normal * Abdomen Description: Nontender, No Organomegaly, Soft * Bowel Sounds: Present * Musculoskeletal Exam: Paraspinal tenderness and spasm extending from the mid- thoracic region down to the lower lumbar area. No point thoracic tenderness. No direct CVA tenderness appreciated. Lumbar mid-low generalized renetta tenderness. * Musculoskeletal: Strength Intact * Neurological Exam: Normal: nonfocal, grossly intact * Psychological Exam: Normal: conversing easily and appropriately * Skin Exam: Normal: no visible or reported rash Diagnostics - Radiology THORACIC SPINE X-RAY Radiology Interpretation Completed By: Radiologist - IMPRESSION: MILD DEGENERATIVE CHANGES. LUMBAR SPINE X-RAY Radiology Interpretation Completed By: Radiologist - IMPRESSION: SCOLIOSIS. DEGENERATIVE DISC DISEASE AND OSTEOARTHRITIS. Back Pain Course/Dx - Course Course Of Treatment: No new problems in the CCC. Declines CT lumbar region 2/2 confinement anxiety. Lumbar / thoracic xrays - no fx. See report. Reviewed with pt. He will f/u with pcp re djd, scoliosis. No blood noted in urine dip. See [facility]. Requests script for stronger pain medication. Denies addiction hx, although did smoke and drink in his 20's. He is uncomfortable today, but driving home. As such, will dispense two norco 5/325 to take at home. But should he need any further prescriptions, he will need to obtain this per the discretion of either mental health or primary providers. D/w pt, he expresses understanding, and gratitude for care. Considered below diff dx. Sx c/w acute lumbar strain and possible contusion in the setting of pre- existing djd and scoliosis. Questions answered to the best of my ability. - Differential Dx/Diagnosis Provider Diagnoses: Acute lumbar back strain; arthritis; scoliosis. Discharge - Discharge Plan Condition: Stable Disposition: HOME Patient Education Materials: Low Back Strain (ED), Arthritis (ED) Forms: *Gen. Provider Communication Referrals: Bobo Quezada MD [Primary Care Provider] - Additional Instructions: Follow up with Dr. Quezada within the next week if possible. Take pain medication as directed by your primary care and/or mental health physician. Seek medical attention for any new or worse problems in the meantime. The documentation as recorded by the Lenny landry Adam accurately reflects the service I personally performed and the decisions made by me, Nichol Avalos MD.
== END 2016-06-10 09:40 | disposition home or self-care (01) ==
LOC: UCEAST 07:32
DX: S39.012A Strain of muscle, fascia and tendon of lower back, initial encounter (principal); W06.XXXA Fall from bed, initial encounter; Y93.89 Activity, other specified; Y92.003 Bedroom of unspecified non-institutional (private) residence as the place of occurrence of the external cause; M51.34 Other intervertebral disc degeneration, thoracic region; M51.36 Other intervertebral disc degeneration, lumbar region; M47.816 Spondylosis without myelopathy or radiculopathy, lumbar region; M41.9 Scoliosis, unspecified
CPT/HCPCS: 72070; 72110; 81003; 99212; G0463

== ENCOUNTER 2016-06-13 18:02 | Emergency (ER) | payer OTHER ==
--- NOTE | 2016-06-13 19:48 | UC ---
UC General HPI - HPI Summary HPI Summary: Pt is on several medications for different mental health diagnoses. Was seen here 06/09 and 06/10 for acute low back muscle spasm. He has had this in the past , usually takes muscle relaxers for it. Was prescribed cyclobenzaprine and started taking it 06/09. For the last couple days has noticed a tremor in his hands, lots of agitation, marked diarrhea, sweating, felt like he had a fever last night, and trouble with coordination and balance. Talked with pharmacist who suggested it sounded like serotonin syndrome and directed him back here. - History of Current Complaint Chief Complaint: UC Stated Complaint: FEVER, POSS REACTIONS TO MEDS Time Seen by Provider: 06/13/16 19:03 Hx Obtained From: Patient Onset/Duration: Gradual Onset, Lasting Days Timing: Constant Onset Severity: Mild Current Severity: Moderate Associated Signs & Symptoms: Positive: Agitation, Dizziness, Diaphoresis, Nausea - Allergy/Home Medications Allergies/Adverse Reactions: Allergies Allergy/AdvReac Type Severity Reaction Status Date / Time Aripiprazole [From Abilify] Allergy Unknown Verified 06/13/16 18:56 Reaction Details Lamotrigine [From Lamictal] Allergy Unknown Verified 06/13/16 18:56 Reaction Details Ziprasidone [From Geodon] Allergy Unknown Verified 06/13/16 18:56 Reaction Details PMH/Surg Hx/FS Hx/Imm Hx Endocrine History Of: Denies: Diabetes, Thyroid Disease Cardiovascular History Of: Reports: Cardiac Disorders - angina, Hypertension - boderline no medication Denies: Pacemaker/ICD, Congestive Heart Failure, Deep Vein Thrombosis Respiratory History Of: Denies: COPD, Asthma, Pneumonia, Pulmonary Embolism GI/ History Of: Denies: Ulcer, Gastrointestinal Bleed, Gall Bladder Disease, Kidney Stones Neurological History Of: Reports: Seizures Denies: TIA, CVA, Dementia Psychological History Of: Reports: Anxiety, Depression Denies: Bipolar Disorder, Schizophrenia Cancer History Of: Denies: Lung Cancer Other History Of: Negative For: Anticoagulant Therapy - Surgical History Surgical History: Yes Surgery Procedure, Year, and Place: left knee 1983 - Family History Known Family History: Positive: Unknown, Hypertension, Other - Depression, EtOH abuse, back problems. - Social History Alcohol Use: None Alcohol Amount: pt states none Substance Use Type: None, Prescribed Substance Use Comment - Amount & Last Used: hx of poly-Rx abuse Smoking Status (MU): Former Smoker Type: Cigarettes Amount Used/How Often: 5-10 cigs a day Have You Smoked in the Last Year: No When Did the Patient Quit Smoking/Using Tobacco: 2006 - Immunization History Most Recent Influenza Vaccination: Never Most Recent Tetanus Shot: Unsure Most Recent Pneumonia Vaccination: Never Review of Systems Constitutional: Fever, Chills, Fatigue Skin: Negative Eyes: Negative ENT: Negative Respiratory: Negative Cardiovascular: Negative Gastrointestinal: Diarrhea Genitourinary: Negative Motor: Weakness Neurovascular: Negative Musculoskeletal: Negative Neurological: Negative Psychological: Anxious All Other Systems Reviewed And Are Negative: Yes Physical Exam Triage Information Reviewed: Yes Appearance: No Pain Distress, Well-Nourished Vital Signs: Initial Vital Signs Temp 97.6 F 06/13/16 18:46 Pulse 85 06/13/16 18:46 Resp 18 06/13/16 18:46 BP 106/87 06/13/16 18:46 Pulse Ox 99 06/13/16 18:46 Eye Exam: Other - Pupils dilated with only minimal reactivity Eyes: Positive: Conjunctiva Clear, Other: - eyes appear dry ENT: Positive: Hearing grossly normal, TMs normal, Other: - dry MM. Negative: Pharyngeal erythema, Nasal drainage Dental Exam: Normal Neck exam: Normal Neck: Positive: Supple, Nontender, No Lymphadenopathy Respiratory Exam: Normal Respiratory: Positive: Chest non-tender, Lungs clear, Normal breath sounds, No respiratory distress, No accessory muscle use Cardiovascular Exam: Normal Cardiovascular: Positive: RRR, No Murmur Musculoskeletal: Positive: Strength Intact, ROM Intact Neurological Exam: Other - hyperreflexia in patellar and biceps reflexes Psychological Exam: Normal Skin Exam: Normal Course/Dx - Course Course Of Treatment: Discussed potential rapid worsening of condition and recommended pt go to ED for bloodwork and monitoring. Pt declines, says he doesn 't feel that bad and really didn't want to go to the hospital tonight. I explained he could sign out AMA, but that he would need to go to the ED at the first sign of worsening. Also explained that because he is on several agents with serotonergic activity that he probably cannot discontinue all of them. Especially with the long half-life of fluoxitine, he may have some symptoms for days to come. I strongly reocmmended he contact his prescribing provider to discuss how to decrease or change his medication safely. - Differential Dx - Multi-Symptom Provider Diagnoses: serotonin syndrome Discharge - Discharge Plan Condition: Stable Disposition: AGAINST MEDICAL ADVICE Prescriptions: Tizanidine HCl [Zanaflex] 2 mg PO TID PRN #30 cap PRN Reason: Pain Patient Education Materials: Serotonin Syndrome (ED) Referrals: Bobo Quezada MD [Primary Care Provider] - 3 Days Additional Instructions: Please discuss your current medication with your prescribing provider as soon as possible -- you may not see a lot of improvement unless you discontinue those. I have recommended you go to the emergency department tonight, but you have elected to go home. If you have increasing symptoms at all I strongly recommend you call 911 or get a ride to the hospital right away.
[2016-06-13 20:02] VITALS: BP 136/85
== END 2016-06-13 20:00 | disposition left against medical advice (07) ==
LOC: UCEAST 18:02
DX: G25.89 Other specified extrapyramidal and movement disorders (principal); G25.1 Drug-induced tremor; T48.1X5A Adverse effect of skeletal muscle relaxants [neuromuscular blocking agents], initial encounter; Y92.9 Unspecified place or not applicable; Z88.8 Allergy status to other drugs, medicaments and biological substances; Z87.891 Personal history of nicotine dependence
CPT/HCPCS: 99212; G0463

== ENCOUNTER 2016-07-17 13:49 | Emergency (ER) | payer OTHER ==
[2016-07-17] MEDS ORDERED: Aspirin Low Dose CHEW TAB* 81 MG PO ONE (15:51)
[2016-07-17 16:29] VITALS: BP 167/110
--- NOTE | 2016-07-29 20:26 | UC ---
Faizan Liu Matthew, scribed for Iris Lim DO on 07/17/16 at 1518 . Hypertension HPI - HPI Summary HPI Summary: A 50 y/o male presents to [facility] with hypertension and states that his BP was 190/ 105 [employer]. He states that he's been taking Klonopin for anxiety and used it to help manage his BP. The patient was taking Klonopin 3-4 times per day and he ran out of the medication today. He states that his BP has been running on average 174/140 since he was release from the hospital in March. He was hospitalized overnight into the cardiac care unit and had a stress test and an echocardiogram done at that time. He states that exertion helps his symptoms and stress worsens his symptoms. In [facility], the BP was measured at 154/81. Associated symptoms include lightheadedness, dizziness, nausea, mild SOB, and mild chest tightness. He denies visual changes, weakness, left neck, jaw, and arm pain, tinnitus, and headache. He states that he walks 3 miles per day. He's schedule to see his PCP on July 29, 2016. PMHx of HTN, depression, ADHD, and anxiety. FHx of CAD. The patient is a former smoker. - History of Current Complaint Chief Complaint: UCGeneralIllness Stated Complaint: BLOOD PRESSURE COMPLAINT Time Seen by Provider: 07/17/16 14:56 Hx Obtained From: Patient Onset/Duration: Lasting Weeks, Still Present Timing: Constant Reported Blood Pressure Prior To Arrival:: 190/105 Aggravating Factor(s): Nothing Alleviating Factor(s): Nothing Associated Signs And Symptoms: Positive: Chest Pain, Anxiety, Dizziness. Negative: Vision Changes, Headaches - Allergies/Home Medications Allergies/Adverse Reactions: Allergies Allergy/AdvReac Type Severity Reaction Status Date / Time Aripiprazole [From Abilify] Allergy Unknown Verified 07/17/16 16:55 Reaction Details Lamotrigine [From Lamictal] Allergy Unknown Verified 07/17/16 16:55 Reaction Details Ziprasidone [From Geodon] Allergy Unknown Verified 07/17/16 16:55 Reaction Details PMH/Surg Hx/FS Hx/Imm Hx Endocrine History Of: Denies: Diabetes, Thyroid Disease Cardiovascular History Of: Reports: Cardiac Disorders - angina, Hypertension - boderline no medication Denies: Pacemaker/ICD, Congestive Heart Failure, Deep Vein Thrombosis Respiratory History Of: Denies: COPD, Asthma, Pneumonia, Pulmonary Embolism GI/ History Of: Denies: Ulcer, Gastrointestinal Bleed, Gall Bladder Disease, Kidney Stones Neurological History Of: Reports: Seizures Denies: TIA, CVA, Dementia Psychological History Of: Reports: Anxiety, Depression Denies: Bipolar Disorder, Schizophrenia Cancer History Of: Denies: Lung Cancer Other History Of: Negative For: Anticoagulant Therapy - Surgical History Surgical History: Yes Surgery Procedure, Year, and Place: left knee 1983 - Family History Known Family History: Positive: Hypertension, Other - Depression, EtOH abuse, back problems. - Social History Alcohol Use: None Alcohol Amount: pt states none Substance Use Type: None, Prescribed Substance Use Comment - Amount & Last Used: hx of poly-Rx abuse Smoking Status (MU): Former Smoker Type: Cigarettes Amount Used/How Often: 5-10 cigs a day Have You Smoked in the Last Year: No When Did the Patient Quit Smoking/Using Tobacco: 2006 - Immunization History Most Recent Influenza Vaccination: Never Most Recent Tetanus Shot: Unsure Most Recent Pneumonia Vaccination: Never Review of Systems Constitutional: Negative Skin: Negative Eyes: Negative ENT: Negative Respiratory: Shortness Of Breath - mild Cardiovascular: Chest Pain - mild chest tightness Gastrointestinal: Other - nausea Genitourinary: Negative Motor: Negative Neurovascular: Negative Musculoskeletal: Negative Neurological: Other - Dizziness, lightheadedness Psychological: Negative All Other Systems Reviewed And Are Negative: Yes Physical Exam Triage Information Reviewed: Yes Appearance: Well-Appearing, No Pain Distress, Well-Nourished Vital Signs: Initial Vital Signs Temp 97.7 F 07/17/16 14:34 Pulse 74 07/17/16 14:34 Resp 16 07/17/16 14:34 BP 154/81 07/17/16 14:34 Pulse Ox 100 07/17/16 14:34 Vital Signs Reviewed: Yes Eyes: Positive: Conjunctiva Clear ENT: Positive: Hearing grossly normal. Negative: Muffled/hoarse voice Neck exam: Normal Neck: Positive: Supple Respiratory: Positive: Lungs clear, Normal breath sounds, No respiratory distress, No accessory muscle use Cardiovascular: Positive: RRR, No Murmur, Pulses Normal Musculoskeletal Exam: Normal Musculoskeletal: Positive: Strength Intact Neurological: Positive: Alert, Muscle Tone Normal Psychological: Positive: Age Appropriate Behavior, Other: Skin Exam: Normal, Other - warm, dry, normal color Diagnostics - EKG Cardiac Rate: NL - 88 bpm Cardiac Rhythm: Sinus: Normal Ectopy: None ST Segment: Normal Hypertension Course/Dx - Differential Dx/Diagnosis Differential Diagnosis/HQI PQRI: Angina, Hypertensive Crisis, Other - anxiety Provider Diagnoses: cp - r/o acs - Physician Notifications Discussed Patient Care With: Tasha (JANELLE HUTCHINS) at 15:44 -- Notified of patient' s history and accepts transfer of the patient. Discharge - Discharge Plan Condition: Stable Disposition: [facility] Referrals: Bobo Quezada MD [Primary Care Provider] - The documentation as recorded by the Faizan landry Matthew accurately reflects the service I personally performed and the decisions made by , Iris Lim DO.
== END 2016-07-17 16:28 | disposition short-term general hospital (02) ==
LOC: UCEAST 13:49
DX: R07.9 Chest pain, unspecified (principal); I20.9 Angina pectoris, unspecified; I10 Essential (primary) hypertension; F41.9 Anxiety disorder, unspecified; F32.9 Major depressive disorder, single episode, unspecified; Z87.891 Personal history of nicotine dependence
CPT/HCPCS: 93005; 99213; A9270-GY; G0463

== ENCOUNTER 2016-09-01 12:25 | Inpatient (IN) | payer OTHER ==
[2016-09-01] MEDS ORDERED: Nicotine Inhaler* 10 MG AMP INH PRN (13:38)
[2016-09-01] MEDS ORDERED: Mouth Piece, Nicotine* 1 EACH CARTRIDGE INH ONE (16:00)
[2016-09-01] MEDS: Al Hydrox/Mg Hydrox/Simet LIQ* 30 ML UDC PO PRN (16:09)
[2016-09-01] MEDS: Metoprolol Tartrate TAB* 25 MG PO SCH (16:54)
[2016-09-01] MEDS: clonazePAM TAB(*) 1 MG PO SCH ×2 (16:55→20:34)
[2016-09-01] MEDS: FLUoxetine CAP* 20 MG PO SCH (17:19)
[2016-09-01] MEDS: Mirtazapine TAB* 15 MG PO SCH (20:34)
[2016-09-01] MEDS: Zolpidem TAB* 10 MG PO PRN (20:36)
[2016-09-01] MEDS: Albuterol HFA INHALER* 8 gm MDI INH PRN (21:16)
[2016-09-02] MEDS: Omeprazole CAP* 20 MG PO SCH (06:25)
[2016-09-02] MEDS: amLODIPine TAB* 5 MG PO SCH (08:01)
[2016-09-02] MEDS: Metoprolol Tartrate TAB* 25 MG PO SCH ×2 (08:01→17:14)
[2016-09-02] MEDS: clonazePAM TAB(*) 1 MG PO SCH ×4 (08:02→19:58)
[2016-09-02] MEDS: Multivitamins/Minerals TAB PO SCH (08:03)
[2016-09-02] MEDS: Thiamine TAB* 100 MG TAB PO SCH (08:03)
[2016-09-02] MEDS: Folic Acid TAB* 1 MG PO SCH (08:03)
[2016-09-02] MEDS: FLUoxetine CAP* 20 MG PO SCH ×2 (08:03→17:52)
[2016-09-02] MEDS: BuPROPion XL* 300 MG TAB.XL PO SCH (09:14)
[2016-09-02] MEDS: Cetirizine* 10 MG TAB PO PRN (09:29)
[2016-09-02] MEDS: Hemorrhoidal OINT PR PRN ×3 (11:21→22:42)
--- NOTE | 2016-09-02 11:40 | PN ---
[facility]: Group Therapy Note - Service Type Service Type: [id number] Group Psychotherapy - Cognitive Behavioral Group Therapy ( CBT):Patient was attentive and participatory in CBT programming this morning, and remained in good behavioral control. Patient expressed positive insights regarding relevant treatment interventions and goals.
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
[2016-09-02] MEDS: Mirtazapine TAB* 15 MG PO SCH (19:58)
[2016-09-02] MEDS: Zolpidem TAB* 10 MG PO PRN (20:00)
[2016-09-02] MEDS: Albuterol HFA INHALER* 8 gm MDI INH PRN (21:03)
[2016-09-03] MEDS: Omeprazole CAP* 20 MG PO SCH (06:05)
[2016-09-03] MEDS: Cetirizine* 10 MG TAB PO PRN (06:05)
[2016-09-03] MEDS: Acetaminophen TAB* 325 MG PO PRN ×2 (06:05→20:03)
[2016-09-03] MEDS: BuPROPion XL* 300 MG TAB.XL PO SCH (07:54)
[2016-09-03] MEDS: clonazePAM TAB(*) 1 MG PO SCH ×4 (07:54→20:03)
[2016-09-03] MEDS: Folic Acid TAB* 1 MG PO SCH (07:55)
[2016-09-03] MEDS: Metoprolol Tartrate TAB* 25 MG PO SCH ×2 (07:55→17:04)
[2016-09-03] MEDS: Multivitamins/Minerals TAB PO SCH (07:55)
[2016-09-03] MEDS: Thiamine TAB* 100 MG TAB PO SCH (07:55)
[2016-09-03] MEDS: FLUoxetine CAP* 20 MG PO SCH ×2 (07:56→17:04)
[2016-09-03] MEDS: amLODIPine TAB* 5 MG PO SCH (07:57)
[2016-09-03] MEDS: Albuterol HFA INHALER* 8 gm MDI INH PRN ×3 (14:02→22:00)
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
[2016-09-03] MEDS: diPHENhydraMINE PO* 50 MG PO PRN (18:35)
[2016-09-03] MEDS: Mirtazapine TAB* 15 MG PO SCH (20:03)
[2016-09-03] MEDS: Zolpidem TAB* 10 MG PO PRN (20:04)
[2016-09-03] MEDS: Al Hydrox/Mg Hydrox/Simet LIQ* 30 ML UDC PO PRN (21:59)
[2016-09-04] MEDS: diPHENhydraMINE PO* 50 MG PO PRN ×3 (03:38→20:02)
[2016-09-04] MEDS: Omeprazole CAP* 20 MG PO SCH (05:34)
[2016-09-04] MEDS: Cetirizine* 10 MG TAB PO PRN (05:36)
[2016-09-04] MEDS: Albuterol HFA INHALER* 8 gm MDI INH PRN ×2 (06:46→16:02)
[2016-09-04] MEDS: Metoprolol Tartrate TAB* 25 MG PO SCH ×2 (08:04→15:59)
[2016-09-04] MEDS: amLODIPine TAB* 5 MG PO SCH (08:04)
[2016-09-04] MEDS: Thiamine TAB* 100 MG TAB PO SCH (08:05)
[2016-09-04] MEDS: clonazePAM TAB(*) 1 MG PO SCH ×4 (08:05→20:00)
[2016-09-04] MEDS: Multivitamins/Minerals TAB PO SCH (08:05)
[2016-09-04] MEDS: BuPROPion XL* 300 MG TAB.XL PO SCH (08:05)
[2016-09-04] MEDS: FLUoxetine CAP* 20 MG PO SCH ×2 (08:05→17:29)
[2016-09-04] MEDS: Folic Acid TAB* 1 MG PO SCH (08:06)
[2016-09-04] MEDS: Al Hydrox/Mg Hydrox/Simet LIQ* 30 ML UDC PO PRN ×2 (08:56→15:54)
[2016-09-04] MEDS: Famotidine TAB* 20 MG PO PRN (08:56)
[2016-09-04] MEDS: Acetaminophen TAB* 325 MG PO PRN (10:55)
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
[2016-09-04] MEDS ORDERED: Loperamide LIQ* 2 MG/10 ML UDC PO ONE (15:24)
[2016-09-04] MEDS: Hemorrhoidal OINT PR PRN (16:13)
[2016-09-04] MEDS: Mirtazapine TAB* 15 MG PO SCH (20:00)
[2016-09-04] MEDS: Zolpidem TAB* 10 MG PO PRN (20:02)
[2016-09-05] MEDS: diPHENhydraMINE PO* 50 MG PO PRN ×3 (03:24→16:23)
[2016-09-05] MEDS: Cetirizine* 10 MG TAB PO PRN (03:24)
[2016-09-05] MEDS: Famotidine TAB* 20 MG PO PRN (03:25)
[2016-09-05] MEDS: Omeprazole CAP* 20 MG PO SCH (05:23)
[2016-09-05] MEDS: Albuterol HFA INHALER* 8 gm MDI INH PRN (06:55)
[2016-09-05] MEDS: BuPROPion XL* 300 MG TAB.XL PO SCH (07:51)
[2016-09-05] MEDS: Metoprolol Tartrate TAB* 25 MG PO SCH ×2 (07:51→16:24)
[2016-09-05] MEDS: Multivitamins/Minerals TAB PO SCH (07:51)
[2016-09-05] MEDS: amLODIPine TAB* 5 MG PO SCH (07:52)
[2016-09-05] MEDS: clonazePAM TAB(*) 1 MG PO SCH ×4 (07:52→20:07)
[2016-09-05] MEDS: FLUoxetine CAP* 20 MG PO SCH ×2 (07:52→17:59)
[2016-09-05] MEDS: Folic Acid TAB* 1 MG PO SCH (07:52)
[2016-09-05] MEDS: Thiamine TAB* 100 MG TAB PO SCH (07:52)
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
[2016-09-05] MEDS: Acetaminophen TAB* 325 MG PO PRN (16:24)
[2016-09-05] MEDS: Mirtazapine TAB* 15 MG PO SCH (20:07)
[2016-09-05] MEDS: Zolpidem TAB* 10 MG PO PRN (20:10)
[2016-09-06] MEDS: Acetaminophen TAB* 325 MG PO PRN ×3 (03:15→17:56)
[2016-09-06] MEDS: diPHENhydraMINE PO* 50 MG PO PRN ×3 (03:15→20:17)
[2016-09-06] MEDS: Cetirizine* 10 MG TAB PO PRN (03:15)
[2016-09-06] MEDS: Omeprazole CAP* 20 MG PO SCH (05:12)
[2016-09-06] MEDS: Albuterol HFA INHALER* 8 gm MDI INH PRN ×2 (06:28→23:01)
[2016-09-06] MEDS: amLODIPine TAB* 5 MG PO SCH (07:58)
[2016-09-06] MEDS: Metoprolol Tartrate TAB* 25 MG PO SCH ×2 (08:01→16:16)
[2016-09-06] MEDS: FLUoxetine CAP* 20 MG PO SCH ×2 (08:01→17:56)
[2016-09-06] MEDS: Folic Acid TAB* 1 MG PO SCH (08:01)
[2016-09-06] MEDS: Thiamine TAB* 100 MG TAB PO SCH (08:01)
[2016-09-06] MEDS: clonazePAM TAB(*) 1 MG PO SCH ×4 (08:01→20:13)
[2016-09-06] MEDS: Multivitamins/Minerals TAB PO SCH (08:01)
[2016-09-06] MEDS: BuPROPion XL* 300 MG TAB.XL PO SCH (08:04)
[2016-09-06] MEDS: Famotidine TAB* 20 MG PO PRN (09:49)
[2016-09-06] MEDS ORDERED: Loperamide CAP* 2 MG PO ONE (18:00)
[2016-09-06] MEDS: Mirtazapine TAB* 15 MG PO SCH (20:13)
[2016-09-06] MEDS: Ibuprofen TAB* 400 MG PO PRN (20:14)
[2016-09-06] MEDS: Zolpidem TAB* 10 MG PO PRN (20:17)
[2016-09-07] MEDS: Ibuprofen TAB* 400 MG PO PRN ×3 (02:35→16:52)
[2016-09-07] MEDS: Cetirizine* 10 MG TAB PO PRN (02:35)
[2016-09-07] MEDS: diPHENhydraMINE PO* 50 MG PO PRN ×3 (02:35→18:16)
[2016-09-07] MEDS: Omeprazole CAP* 20 MG PO SCH (06:17)
[2016-09-07] MEDS: Thiamine TAB* 100 MG TAB PO SCH (08:03)
[2016-09-07] MEDS: clonazePAM TAB(*) 1 MG PO SCH ×4 (08:03→21:03)
[2016-09-07] MEDS: Metoprolol Tartrate TAB* 25 MG PO SCH ×2 (08:03→16:51)
[2016-09-07] MEDS: BuPROPion XL* 300 MG TAB.XL PO SCH (08:03)
[2016-09-07] MEDS: Multivitamins/Minerals TAB PO SCH (08:03)
[2016-09-07] MEDS: Folic Acid TAB* 1 MG PO SCH (08:03)
[2016-09-07] MEDS: amLODIPine TAB* 5 MG PO SCH (08:04)
[2016-09-07] MEDS: FLUoxetine CAP* 20 MG PO SCH ×2 (08:04→16:55)
[2016-09-07] MEDS: Acetaminophen TAB* 325 MG PO PRN (09:52)
[2016-09-07] MEDS: Albuterol HFA INHALER* 8 gm MDI INH PRN ×2 (09:58→12:42)
[2016-09-07] MEDS: Loperamide CAP* 2 MG PO PRN ×4 (10:11→21:06)
[2016-09-07] MEDS: Mirtazapine TAB* 15 MG PO SCH (21:03)
[2016-09-07] MEDS: Zolpidem TAB* 10 MG PO PRN (21:08)
[2016-09-08] MEDS: Loperamide CAP* 2 MG PO PRN ×3 (00:25→17:49)
[2016-09-08] MEDS: diPHENhydraMINE PO* 50 MG PO PRN ×4 (00:25→19:18)
[2016-09-08] MEDS: Ibuprofen TAB* 400 MG PO PRN ×4 (00:25→17:47)
[2016-09-08] MEDS: Cetirizine* 10 MG TAB PO PRN (06:00)
[2016-09-08] MEDS: Omeprazole CAP* 20 MG PO SCH (06:00)
[2016-09-08] MEDS: clonazePAM TAB(*) 1 MG PO SCH ×3 (08:14→20:05)
[2016-09-08] MEDS: BuPROPion XL* 300 MG TAB.XL PO SCH (08:14)
[2016-09-08] MEDS: Thiamine TAB* 100 MG TAB PO SCH (08:14)
[2016-09-08] MEDS: Metoprolol Tartrate TAB* 25 MG PO SCH ×2 (08:14→17:08)
[2016-09-08] MEDS: FLUoxetine CAP* 20 MG PO SCH ×2 (08:15→17:09)
[2016-09-08] MEDS: Folic Acid TAB* 1 MG PO SCH (08:15)
[2016-09-08] MEDS: Multivitamins/Minerals TAB PO SCH (08:15)
[2016-09-08] MEDS: amLODIPine TAB* 5 MG PO SCH (09:26)
[2016-09-08] MEDS: Acetaminophen TAB* 325 MG PO PRN (10:48)
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
[2016-09-08] MEDS: Albuterol HFA INHALER* 8 gm MDI INH PRN (11:56)
--- NOTE | 2016-09-08 17:28 | RAD ---
HISTORY: Dislocated joint, right shoulder pain COMPARISONS: None VIEWS: 4, Frontal internal rotation, external rotation, outlet, and axillary views of the right shoulder FINDINGS: BONE DENSITY: Normal. BONES: There is no displaced fracture. JOINTS: There is osteoarthritis of the glenohumeral and AC joints ALIGNMENT: There is no dislocation. SOFT TISSUES: Unremarkable. OTHER FINDINGS: None. IMPRESSION: OSTEOARTHRITIS. NO ACUTE OSSEOUS INJURY. IF SYMPTOMS PERSIST, RECOMMEND REPEAT IMAGING.
[2016-09-08] MEDS: Mirtazapine TAB* 15 MG PO SCH (20:06)
[2016-09-08] MEDS: Zolpidem TAB* 10 MG PO PRN (20:06)
[2016-09-09] MEDS: Cetirizine* 10 MG TAB PO PRN (04:12)
[2016-09-09] MEDS: Ibuprofen TAB* 400 MG PO PRN ×3 (06:03→17:39)
[2016-09-09] MEDS: Omeprazole CAP* 20 MG PO SCH (06:03)
[2016-09-09] MEDS: Multivitamins/Minerals TAB PO SCH (08:10)
[2016-09-09] MEDS: BuPROPion XL* 300 MG TAB.XL PO SCH (08:11)
[2016-09-09] MEDS: FLUoxetine CAP* 20 MG PO SCH ×3 (08:11→21:21)
[2016-09-09] MEDS: Thiamine TAB* 100 MG TAB PO SCH (08:11)
[2016-09-09] MEDS: clonazePAM TAB(*) 1 MG PO SCH ×3 (08:11→20:04)
[2016-09-09] MEDS: Metoprolol Tartrate TAB* 25 MG PO SCH ×2 (08:11→17:38)
[2016-09-09] MEDS: diPHENhydraMINE PO* 50 MG PO PRN ×3 (08:13→20:02)
[2016-09-09] MEDS: amLODIPine TAB* 5 MG PO SCH (08:38)
[2016-09-09] MEDS: Folic Acid TAB* 1 MG PO SCH (08:39)
[2016-09-09] MEDS: Loperamide CAP* 2 MG PO PRN (14:43)
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
[2016-09-09] MEDS: Albuterol HFA INHALER* 8 gm MDI INH PRN ×2 (18:16→20:07)
[2016-09-09] MEDS: Zolpidem TAB* 10 MG PO PRN (20:02)
[2016-09-09] MEDS: Mirtazapine TAB* 15 MG PO SCH (20:03)
[2016-09-10] MEDS: Ibuprofen TAB* 400 MG PO PRN ×2 (01:40→08:26)
[2016-09-10] MEDS: diPHENhydraMINE PO* 50 MG PO PRN (01:40)
[2016-09-10] MEDS: Cetirizine* 10 MG TAB PO PRN (04:15)
[2016-09-10] MEDS: Acetaminophen TAB* 325 MG PO PRN (04:15)
[2016-09-10] MEDS: Omeprazole CAP* 20 MG PO SCH (06:30)
[2016-09-10 07:57] VITALS: BP 129/75
[2016-09-10] MEDS: Multivitamins/Minerals TAB PO SCH (08:09)
[2016-09-10] MEDS: clonazePAM TAB(*) 1 MG PO SCH (08:10)
[2016-09-10] MEDS: FLUoxetine CAP* 20 MG PO SCH (08:10)
[2016-09-10] MEDS: Folic Acid TAB* 1 MG PO SCH (08:10)
[2016-09-10] MEDS: BuPROPion XL* 300 MG TAB.XL PO SCH (08:10)
[2016-09-10] MEDS: Thiamine TAB* 100 MG TAB PO SCH (08:10)
[2016-09-10] MEDS: Metoprolol Tartrate TAB* 25 MG PO SCH (08:11)
[2016-09-10] MEDS: amLODIPine TAB* 5 MG PO SCH (10:06)
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
== END 2016-09-10 11:25 | disposition home or self-care (01) | DRG 754 ==
LOC: BSU 15:08
PROVIDERS: ADMIT Psychiatry & Neurology Psychiatry; ATTEND Psychiatry & Neurology Psychiatry
DX: F32.9 Major depressive disorder, single episode, unspecified (principal); I10 Essential (primary) hypertension; J98.9 Respiratory disorder, unspecified; K21.9 Gastro-esophageal reflux disease without esophagitis; F13.10 Sedative, hypnotic or anxiolytic abuse, uncomplicated; F10.10 Alcohol abuse, uncomplicated; Z88.8 Allergy status to other drugs, medicaments and biological substances; Z81.1 Family history of alcohol abuse and dependence; Z81.8 Family history of other mental and behavioral disorders; Z79.899 Other long term (current) drug therapy
CPT/HCPCS: 90853; 99222; 99231; 99232; 99233; 99238; A9270-GY

== ENCOUNTER 2016-10-07 10:55 | Inpatient (IN) | payer OTHER ==
[2016-10-07 13:00] LABS: Hematocrit 42 % (42-52); Hemoglobin 13.7 g/dl (14.0-18.0); Mean Corpuscular HGB Conc 33 g/dl (31-36); Mean Corpuscular Hemoglobin 26 pg (27-31); Mean Corpuscular Volume 81 fL (80-94); Mean Platelet Volume 8 um3 (7.4-10.4); Red Cell Distribution Width 17 % (10.5-15); White Blood Count 12.9 10^3/ul (3.5-10.8)
[2016-10-07 13:15] LABS: ALT 50 U/L (7-52); AST 48 U/L (13-39); Albumin 4.7 g/dL (3.2-5.2); Alkaline Phosphatase 80 U/L (34-104); Anion Gap 10 mmol/L (2-11); BUN/Creatinine Ratio 38.5 (8-20); Blood Urea Nitrogen 40 mg/dL (6-24); CO2 Carbon Dioxide 23 mmol/L (22-32); Calcium 10.2 mg/dL (8.6-10.3); Chloride 97 mmol/L (101-111); EGFR African American 96.4 (>60); Globulin 4.7 g/dL (2-4); Glucose 113 mg/dL (70-100); Potassium 3.8 mmol/L (3.5-5.0); Sodium 130 mmol/L (133-145); Total Protein 9.4 g/dL (6.4-8.9)
[2016-10-07] MEDS ORDERED: NS 0.9% 1000 ML* 1,000 ML IV ONE (13:35)
--- NOTE | 2016-10-07 13:37 | RAD ---
Indication: Headache, altered mental status. Comparison: August 27, 2006 Technique: Noncontrast CT vertex of skull through foramen magnum. Report: The sulci, ventricles, and basal cisterns are normal for age. Cardona matter white matter differentiation is preserved without evidence for edema. No intra or extra axial hemorrhage, mass, or fluid collection detected. Unremarkable visualized orbital contents. Unremarkable calvarium and skull base. Unremarkable scalp. The visualized paranasal sinuses and mastoid air spaces are clear. IMPRESSION: Negative unenhanced head CT.
--- NOTE | 2016-10-07 13:40 | RAD ---
HISTORY: Altered mental status COMPARISONS: August 27, 2016 VIEWS: 4: Frontal dual-energy and lateral views of the chest. FINDINGS: CARDIOMEDIASTINAL SILHOUETTE: The cardiomediastinal silhouette is normal. VANESSA: The vanessa are normal. PLEURA: The costophrenic angles are sharp. No pleural abnormalities are noted. LUNG PARENCHYMA: The lungs are clear. ABDOMEN: The upper abdomen is clear. There is no subphrenic gas. BONES AND SOFT TISSUES: No bone or soft tissue abnormalities are noted. OTHER: None. IMPRESSION: NO ACTIVE CARDIOPULMONARY DISEASE.
[2016-10-07 13:43] LABS: Acetaminophen < 15 mcg/mL; Alcohol < 10 mg/dL (<10); Salicylate < 2.50 mg/dL (<30)
[2016-10-07 13:52] LABS: TSH (Thyroid Stimulating Horm) 2.35 mcIU/mL (0.34-5.60)
--- NOTE | 2016-10-07 18:22 | ED ---
Rod Liu Auryana, scribed for Bobo John MD on 10/07/16 at 1117 . Psychiatric Complaint - HPI Summary HPI Summary: 50 year old male BIBA for MHE. Per report, patient missed mental health appointment today and office called to check on patient - reported to have ran out of medications 1 week ago and now has "felt sad" for the past 3-4 days. Patient is not cooperative and will not give a history but does report "feeling scared" while laughing periodically throughout physician attempted evaluation. He is a level 5 caveat due to uncooperative nature and non-sensical speech. - History Of Current Complaint Chief Complaint: EDMentalHealth Time Seen by Provider: 10/07/16 11:14 Hx Obtained From: Patient Hx From Patient Unobtainable Due To: Other - PATIENT IS A LEVEL 5 CAVEAT DUE TO UNCOOPERATIVE NATURE AND NON-SENSICAL SPEECH. Onset/Duration: Gradual Onset Character: Depressed - "felt sad" Aggravating Factor(s): Medication Non-compliance - ran out of medications Related History: Positive For: Prior Psychiatric Issues - Allergies/Home Medications Allergies/Adverse Reactions: Allergies Allergy/AdvReac Type Severity Reaction Status Date / Time Aripiprazole [From Abilify] Allergy Severe Hallucinati Verified 09/01/16 16:29 ons Lamotrigine [From Lamictal] Allergy Severe Hallucinati Verified 09/01/16 16:29 ons Ziprasidone [From Geodon] Allergy Severe See Comment Verified 09/01/16 16:29 Home Medications: Home Medications Albuterol HFA INHALER* [Ventolin HFA Inhaler*] 2 puff INH Q6H PRN 10/07/16 [ History Confirmed 10/07/16] Amphetamine MIXED SALT TAB* [Adderall TAB*] 20 mg PO TID 10/07/16 [History Confirmed 10/07/16] Ascorbic Acid TAB* [Vitamin C TAB*] 500 mg PO DAILY 10/07/16 [History Confirmed 10/07/16] Cetirizine* [ZyrTEC 10 MG TAB*] 10 mg PO DAILY 10/07/16 [History Confirmed 10/07] Cyanocobalamin [Vitamin B-12] 1,000 mcg SL DAILY 10/07/16 [History Confirmed 02/13] FLUoxetine CAP* [PROzac CAP*] 40 mg PO QPM 10/07/16 [History Confirmed 10/07/16] Ferrous Sulfate [Iron (Ferrous Sulfate)] 65 mg PO DAILY 10/07/16 [History Confirmed 10/07/16] Ibuprofen TAB* [Advil TAB*] 200 mg PO Q6H PRN 10/07/16 [History Confirmed ] LORazepam TAB(*) [Ativan 1 MG TAB (*)] 1 mg PO TID PRN 10/07/16 [History Confirmed 10/07/16] Loperamide CAP* [Imodium CAP*] 2 mg PO Q4H PRN 10/07/16 [History Confirmed 10/07] Mirtazapine [Remeron] 45 mg PO BEDTIME 10/07/16 [History Confirmed 10/07/16] Niacin ER CAP* [Niaspan ER CAP*] 500 mg PO DAILY 10/07/16 [History Confirmed 02/13] Pharma Matthew 100 mg PO DAILY 10/07/16 [History Confirmed 10/07/16] Prasterone (Dhea) [Dhea 50] 50 mg PO DAILY 10/07/16 [History Confirmed 10/07/16] Testosterone Complex 3,000 mg PO DAILY 10/07/16 [History Confirmed 10/07/16] Vitamin E CAP* 400 unit PO DAILY 10/07/16 [History Confirmed 10/07/16] amLODIPine TAB* [Norvasc 5 mg TAB*] 10 mg PO DAILY 10/07/16 [History Confirmed 10/07/16] hydrOXYzine PAMOATE CAP* [Vistaril CAP*] 50 mg PO TID PRN 10/07/16 [History Confirmed 10/07/16] levETIRAcetam TAB* [Keppra TAB*] 1,000 mg PO BID 10/07/16 [History Confirmed 02/13] PMH/Surg Hx/FS Hx/Imm Hx Endocrine/Hematology History: Denies: Hx Anticoagulant Therapy, Hx Blood Disorders, Hx Blood Transfusions, Hx Bone Marrow Disease, Hx Diabetes, Hx Systemic Lupus Erythematosus, Hx Sickle Cell Disease, Hx Thyroid Disease, Hx Anemia, Hx Unexplained Bleeding, Other Endocrine/Hematological Disorders Cardiovascular History: Reports: Hx Angina, Hx Hypertension Denies: Hx Aneurysm, Hx Auto Implanted Cardiovert Defib, Hx Cardiac Arrest, Hx Cardiomegaly, Hx Congenital Heart Disease, Hx Congestive Heart Failure, Hx Coronary Artery Disease, Hx Deep Vein Thrombosis, Hx Embolism, Hx Hypercholesterolemia, Hx Hypotension, Hx Pacemaker/ICD, Hx Peripheral Vascular Disease, Hx Rheumatic Fever, Hx Syncope, Hx Valvular Heart Disease, Other Cardiovascular Problems/Disorders Respiratory History: Reports: Hx Seasonal Allergies Denies: Hx Asthma, Hx Chronic Bronchitis, Hx Chronic Obstructive Pulmonary Disease (COPD), Hx Cystic Fibrosis, Hx Lung Cancer, Hx Pleural Effusion, Hx Pneumonia, Hx Pulmonary Edema, Hx Pulmonary Embolism, Hx Sleep Apnea, Other Respiratory Problems/Disorders GI History: Reports: Hx Irritable Bowel - IBS Denies: Hx Cirrhosis, Hx Crohn's Disease, Hx Diverticulosis, Hx Gall Bladder Disease, Hx Gastroesophageal Reflux Disease, Hx Gastrointestinal Bleed, Hx Hiatal Hernia, Hx Jaundice, Hx Obstructive Bowel, Hx Ileostomy, Hx Pyloric Stenosis, Hx Ulcer, Other GI Disorders History: Reports: Other Problems/Disorders - hesitancy, frequency Denies: Hx Acute Renal Failure, Hx Benign Prostatic Hyperplasia, Hx Chronic Renal Failure, Hx Dialysis, Hx Kidney Infection, Hx Kidney Stones Musculoskeletal History: Reports: Hx Arthritis - hands, Hx Back Problems - injury to tailbone when 13, (no chronic pain) Denies: Hx Bursitis, Hx Congenital Bone Abnormalities, Hx Fibromyalgia, Hx Gout, Hx Orthopedic Injury, Hx Osteoporosis, Hx Scoliosis, Hx Tendonitis, Other Musculoskeletal History Sensory History: Reports: Hx Vision Problem - corrected with lenses Denies: Hx Cataracts, Hx Contacts or Glasses, Hx Eye Injury, Hx Eye Prosthesis, Hx Glaucoma, Hx Legally Blind, Hx Macular Degeneration, Hx Deafness , Hx Hearing Aid, Hx Hearing Problem, Other Sensory Impairments Opthamlomology History: Reports: Hx Vision Problem - corrected with lenses Denies: Hx Cataracts, Hx Contacts or Glasses, Hx Eye Injury, Hx Eye Prosthesis, Hx Glaucoma, Hx Legally Blind, Hx Macular Degeneration, Other Sensory Impairments Neurological History: Reports: Hx Headaches - minor once every 6 months, Hx Seizures - 20 yrs ago, Other Neuro Impairments/Disorders - Pt. states new onset of poor hand and feet circulation Denies: Hx Dementia, Hx Developmental Delay, Hx Nerve Disease, Hx Spinal Cord Injury, Hx Transient Ischemic Attacks (TIA) Psychiatric History: Reports: Hx Anxiety, Hx Attention Deficit Hyperactivity Disorder, Hx Depression, Hx Panic Disorder - with anxiety, medicated for mri, Hx Inpatient Treatment, Hx Community Mental Health Tx, Hx Substance Abuse - pt denies; hx states polysubstance abuse, Other Psychiatric Issues/Disorders Denies: Hx Eating Disorder, Hx Post Traumatic Stress Disorder - unknown, Hx Schizophrenia, Hx Bipolar Disorder, Hx Suicide Attempt - Thoughts only, Hx of Violent Episodes Against Others - Surgical History Surgery Procedure, Year, and Place: left knee 1983 Hx Anesthesia Reactions: No - Immunization History Date of Tetanus Vaccine: unsure Date of Influenza Vaccine: never Infectious Disease History: No Infectious Disease History: Reports: Hx Shingles - in 1980 Denies: Hx Clostridium Difficile, Hx Hepatitis, Hx Human Immunodeficiency Virus (HIV), Hx of Known/Suspected MRSA, Hx Tuberculosis, Hx Known/Suspected VRE , Hx Known/Suspected VRSA, History Other Infectious Disease, Traveled Outside the [place] in Last 30 Days - Family History Known Family History: Positive: Hypertension, Other - Depression, EtOH abuse, back problems, COPD - Social History Occupation: Unemployed Lives: Alone Alcohol Use: Rare Alcohol Amount: pt states none Hx Substance Use: Yes Substance Use Type: Reports: None Substance Use Comment - Amount & Last Used: hx of poly-Rx abuse Hx Tobacco Use: Yes Smoking Status (MU): Former Smoker Type: Cigarettes Amount Used/How Often: 5-10 cigs a day Length of Time of Smoking/Using Tobacco: Pt has not smoked or used tobacco in last 30 days Have You Smoked in the Last Year: No Review of Systems - ROS Summary Review of Systems Summary: PATIENT IS A LEVEL 5 CAVEAT DUE TO UNCOOPERATIVE NATURE AND NON-SENSICAL SPEECH. Negative: Fever Positive: Other - ran out of medications; "feels sad" and "scared" All Other Systems Reviewed And Are Negative: No Physical Exam - Summary Physical Exam Summary: VITAL SIGNS: Reviewed. GENERAL: Patient is a well-developed and nourished MALE who is lying comfortable in the stretcher. Patient is not in any acute respiratory distress. HEAD AND FACE: No signs of trauma. No ecchymosis, hematomas or skull depressions. No sinus tenderness. EYES: PERRLA, EOMI x 2, No injected conjunctiva, no nystagmus. EARS: Hearing grossly intact. Ear canals and tympanic membranes are within normal limits. MOUTH: Oropharynx within normal limits. NECK: Supple, trachea is midline, no adenopathy, no JVD, no carotid bruit, no c- spine tenderness, neck with full ROM. CHEST: Symmetric, no tenderness at palpation LUNGS: Clear to auscultation bilaterally. No wheezing or crackles. CVS: Regular rate and rhythm, S1 and S2 present, no murmurs or gallops appreciated. ABDOMEN:No signs of distention. EXTREMITIES: FROM in all major joints, no edema, no cyanosis or clubbing. NEURO: No acute neurological deficits. SKIN: Dry and warm. PSYCH: Unable to assess due to uncooperative nature. PATIENT IS A LEVEL 5 CAVEAT DUE TO UNCOOPERATIVE NATURE AND NON-SENSICAL SPEECH. Triage Information Reviewed: Yes Vital Signs On Initial Exam: Initial Vitals Temp Pulse Resp BP Pulse Ox 99.6 F 102 16 168/99 98 10/07/16 10:59 10/07/16 10:59 10/07/16 10:59 10/07/16 10:59 10/07/16 10:59 Vital Signs Reviewed: Yes Completion Of Physical Exam Limited Due To: Other - PATIENT IS A LEVEL 5 CAVEAT DUE TO UNCOOPERATIVE NATURE AND NON-SENSICAL SPEECH. - Beto Coma Scale Coma Scale Total: 15 Diagnostics - Vital Signs Vital Signs Temp Pulse Resp BP Pulse Ox 10/07/16 10:59 99.6 F 102 16 168/99 98 - Laboratory Lab Results: Lab Results 10/07/16 10/07/16 Range/Units 12:52 12:52 WBC 12.9 H (3.5-10.8) 10^3/ul RBC 5.20 (4.0-5.4) 10^6/ul Hgb 13.7 L (14.0-18.0) g/dl Hct 42 (42-52) % MCV 81 (80-94) fL MCH 26 L (27-31) pg MCHC 33 (31-36) g/dl RDW 17 H (10.5-15) % Plt Count 283 (150-450) 10^3/ul MPV 8 (7.4-10.4) um3 Neut % (Auto) 70.1 (38-83) % Lymph % (Auto) 19.0 L (25-47) % Harrison % (Auto) 9.0 (1-9) % Eos % (Auto) 1.1 (0-6) % Baso % (Auto) 0.8 (0-2) % Absolute Neuts (auto) 9.0 H (1.5-7.7) 10^3/ul Absolute Lymphs (auto) 2.4 (1.0-4.8) 10^3/ul Absolute Monos (auto) 1.2 H (0-0.8) 10^3/ul Absolute Eos (auto) 0.1 (0-0.6) 10^3/ul Absolute Basos (auto) 0.1 (0-0.2) 10^3/ul Absolute Nucleated RBC 0.02 10^3/ul Nucleated RBC % 0.1 Sodium 130 L (133-145) mmol/L Potassium 3.8 (3.5-5.0) mmol/L Chloride 97 L (101-111) mmol/L Carbon Dioxide 23 (22-32) mmol/L Anion Gap 10 (2-11) mmol/L BUN 40 H (6-24) mg/dL Creatinine 1.04 (0.67-1.17) mg/dL Est GFR ( Amer) 96.4 (>60) Est GFR (Non-Af Amer) 75.0 (>60) BUN/Creatinine Ratio 38.5 H (8-20) Glucose 113 H (70-100) mg/dL Calcium 10.2 (8.6-10.3) mg/dL Total Bilirubin 1.60 H (0.2-1.0) mg/dL AST 48 H (13-39) U/L ALT 50 (7-52) U/L Alkaline Phosphatase 80 (34-104) U/L Total Protein 9.4 H (6.4-8.9) g/dL Albumin 4.7 (3.2-5.2) g/dL Globulin 4.7 H (2-4) g/dL Albumin/Globulin Ratio 1.0 (1-3) TSH 2.35 (0.34-5.60) mcIU/mL Salicylates < 2.50 (<30) mg/dL Acetaminophen < 15 mcg/mL Serum Alcohol < 10 (<10) mg/dL Result Diagrams: 10/07/16 12:52 10/07/16 12:52 Lab Statement: Any lab studies that have been ordered have been reviewed, and results considered in the medical decision making process. - Radiology CXR Xray Interpretation: No Acute Changes Radiology Interpretation Completed By: Radiologist - CT BRAIN CT Interpretation: No Acute Changes CT Interpretation Completed By: Radiologist - EKG 11:27 EKG Interpretation: sinus rhythm @98 BPM, no ST elevation EKG Comparison: No Significant Change - from 07/17/16 Course/Dx - Course Assessment/Plan: 50 year old male BIBA for MHE. Per report, patient missed mental health appointment today and office called to check on patient - reported to have ran out of medications 1 week ago and now has "felt sad" for the past 3-4 days. Patient is not cooperative and will not give a history but does report "feeling scared" while laughing periodically throughout physician attempted evaluation. He is a level 5 caveat due to uncooperative nature and non -sensical speech. EKG: sinus rhythm @98 BPM, no ST elevation; No Significant Change - from 07/17/16. Per report: Dr. Joseph (psychiatrist) and ( therapist) of [facility] manage patient. Patient apparently missed appointment yesterday unlike him does not usually miss appointments and if he does, he typically calls ahead. Psychiatrist called patient to check on him and didnt believe he had an SI. abrasive worker called patient today and he was no longer making any sense. [employer] sent over to physically check on patient and sent patient here for evaluation. Test results show slight leukocytosis 12.8, sodium 130, glucose 113, AST 48, Serum ETOH <10. EKG - sinus rhythm @98 BPM, no ST elevation. CXR- NEGATIVE. CT BRAIN - NEGATIVE. I am unable to obtain a good history from the patient . Patient was seen by psychiatrist concern of acute psychosis. At this point the patient is medically clear. Patient recieved MHE and will be admitted to [facility] behavioral services by Dr. Foley. Diagnosis of psychosis. - Differential Dx/Clinical Impression Differential Diagnosis/HQI/PQRI: Positive: Acute Psychosis, Anxiety, Depression Provider Diagnosis: Psychosis Discharge - Discharge Plan Condition: Stable Disposition: ADMITTED TO [facility] Referrals: Bobo Quezada MD [Primary Care Provider] - The documentation as recorded by the Rod landry Auryana accurately reflects the service I personally performed and the decisions made by me, Bobo John MD.
[2016-10-08] MEDS ORDERED: Vitamin THERAPEUTIC TAB ONE (10:45)
[2016-10-08] MEDS: Vitamin THERAPEUTIC TAB PO SCH (10:46)
[2016-10-08] MEDS: Acetaminophen TAB* 325 MG PO PRN (14:34)
[2016-10-08] MEDS ORDERED: clonazePAM TAB(*) 1 MG PO PRN (15:36)
[2016-10-08] MEDS ORDERED: Zolpidem TAB* 5 MG PO PRN (15:37)
[2016-10-08] MEDS ORDERED: LORazepam INJ* 2 MG/ML 1 ML VIAL IM PRN (15:47)
[2016-10-08] MEDS ORDERED: LORazepam INJ* 2 MG/ML 1 ML VIAL ONE (15:47)
[2016-10-08] MEDS ORDERED: Haloperidol INJ IV/IM* 5 MG/ML AMP ONE (15:47)
[2016-10-08] MEDS ORDERED: Haloperidol INJ IV/IM* 5 MG/ML AMP IM PRN (15:48)
[2016-10-08] MEDS: risperiDONE TAB* 1 MG PO SCH (20:55)
[2016-10-08] MEDS: Mirtazapine TAB* 15 MG PO SCH (20:55)
[2016-10-08] MEDS: Metoprolol Tartrate TAB* 25 MG PO SCH (20:55)
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
[2016-10-09] MEDS: BuPROPion XL* 300 MG TAB.XL PO SCH (08:44)
[2016-10-09] MEDS: Metoprolol Tartrate TAB* 25 MG PO SCH ×2 (08:45→20:40)
[2016-10-09] MEDS: amLODIPine TAB* 5 MG PO SCH ×2 (08:45→08:52)
[2016-10-09] MEDS: FLUoxetine CAP* 20 MG PO SCH (08:45)
[2016-10-09] MEDS: Omeprazole CAP* 20 MG PO SCH (08:46)
[2016-10-09] MEDS: Vitamin THERAPEUTIC TAB PO SCH (08:46)
--- NOTE | 2016-10-09 10:30 | PN ---
Subjective - Subjective Service Type: 39444 Hosp care 15 min low complexity Subjective: Bill is awake and alert today, although still confused. As per staff he is incontinent of urine and repeatedly tried to put his urine-soaked clothing on over his scrubs after staff cleaned him in the shower. The patient is med- seeking, asking for clonazepam and Adderall, which he states are now prescribed by Dr. Ranjan Roa. He denies SI or HI. Objective - Appearance Appearance: Well Developed/Nourished Dysmorphic Features: No Hygiene: Mal-odorous Grooming: Disheveled - Behavior Psychomotor Activities: Normal Exhibits Abnormal Movement: No - Attitude and Relatedness Attitude and Relatedness: Psychotically Related Eye Contact: Poor - Speech Quality: Unpressured Latencies: Normal Quantity: Terse - Mood Patient's Decription of Mood: "Anxious" - Affect Observed Affect: Tense Affect Consistent with: Dysphoria - Thought Process Patient's Thought Process: Disorganized Thought Content: Yes Paranoid Ideation, No Passive Wish, No Suicidal Planning, No Homicidal Ideation - Sensorium Experiencing Hallucinations: Yes Type of Hallucinations: Visual: Yes, Auditory: Yes, Command: No - Level of Consciousness Level of Consciousness: Alert Orientation: Yes Intact, Yes Orientated to Time, Yes Orientated to Place, Yes Orientated to Person - Impulse Control Impulse Control: Poor - Insight and Judgement Insight and Judgement: Impaired - Group Participation Particating in Group Activities: No - Medication Management Medication Management Adherence: Partial Assessment - Assessment Merits Inpatient Hospitalization: For Immediate Safety, For Stabilization Inpatient DSM-IV Dx: Unspecified Psychotic DO Clinical Impression: 50 y.o. single, white male with a history of psychosis, substance abuse and affective problems, known to this clinician from recent prior hospitalization on the [facility], who presents involuntarily on a 9.45 initiated by the [facility] due to confusion, disorganization and inability to care for himself in the community. Plan - Plan Treatment Plan: Name: BILL OLIVEROS Birthdate: 1965 [id number] Patient remains psychotic and disorganized, although better than yesterday. We have resumed antidepressant therapy with fluoxetine, mirtazapine and bupropion XL. In addition we have added risperidone 2mg PO qhs. Will await medication response. Continued Medication Management: Different Medication Medications: Current Medications Acetaminophen (Tylenol Tab*) 650 mg PO Q4H PRN PRN Reason: PAIN or TEMP > 101 F Last Admin: 10/08/16 14:34 Dose: 650 mg Al Hydrox/Mg Hydrox/Simethicone (Maalox Plus*) 30 ml PO Q4H PRN PRN Reason: INDIGESTION Albuterol (Ventolin Hfa Inhaler*) 2 puff INH Q4H PRN PRN Reason: SOB/WHEEZING Amlodipine Besylate (Norvasc Tab*) 10 mg PO DAILY [facility] Last Admin: 10/09/16 08:52 Dose: Not Given Bupropion HCl (Bupropion Xl*) 300 mg PO DAILY [facility] Last Admin: 10/09/16 08:44 Dose: 300 mg Diphenhydramine HCl (Benadryl Po*) 25 mg PO Q6H PRN PRN Reason: AGITATION/ANXIETY/INSOMNIA Fluoxetine HCl (Prozac Cap*) 60 mg PO DAILY [facility] Last Admin: 10/09/16 08:45 Dose: 60 mg Haloperidol Lactate (Haldol Inj Iv/Im*) 5 mg IM Q6H PRN PRN Reason: AGITATION Last Admin: 10/08/16 16:23 Dose: 5 mg Lorazepam (Ativan Inj*) 2 mg IM Q6H PRN PRN Reason: ANXIETY Last Admin: 10/08/16 16:23 Dose: 2 mg Metoprolol Tartrate (Lopressor Tab*) 25 mg PO BID [facility] Last Admin: 10/09/16 08:45 Dose: 25 mg Mirtazapine (Remeron Tab*) 45 mg PO BEDTIME [facility] Last Admin: 10/08/16 20:55 Dose: 45 mg Multivitamins (Theragran Tab*) 1 tab PO DAILY [facility] Last Admin: 10/09/16 08:46 Dose: Not Given Omeprazole (Prilosec Cap*) 20 mg PO DAILY [facility] Last Admin: 10/09/16 08:46 Dose: 20 mg Risperidone (Risperdal*) 1 mg PO BEDTIME [facility] Last Admin: 10/08/16 20:55 Dose: 1 mg - Discharge Plan Discharge Plan: Inpatient Hospitalization
[2016-10-09] MEDS: Mirtazapine TAB* 15 MG PO SCH (20:40)
[2016-10-09] MEDS: risperiDONE TAB* 1 MG PO SCH (20:41)
[2016-10-09] MEDS: diPHENhydraMINE PO* 25 MG PO PRN (22:21)
[2016-10-10] MEDS: diPHENhydraMINE PO* 25 MG PO PRN (03:00)
[2016-10-10] MEDS ORDERED: LORazepam TAB(*) 1 MG PO ONE (03:05)
[2016-10-10] MEDS ORDERED: LORazepam TAB(*) 1 MG ONE (03:09)
[2016-10-10] MEDS: Vitamin THERAPEUTIC TAB PO SCH (08:20)
[2016-10-10] MEDS: BuPROPion XL* 300 MG TAB.XL PO SCH (08:20)
[2016-10-10] MEDS: Omeprazole CAP* 20 MG PO SCH (08:20)
[2016-10-10] MEDS: FLUoxetine CAP* 20 MG PO SCH (08:20)
[2016-10-10] MEDS: Metoprolol Tartrate TAB* 25 MG PO SCH ×2 (08:20→21:11)
[2016-10-10] MEDS: amLODIPine TAB* 5 MG PO SCH (08:23)
[2016-10-10] MEDS: Al Hydrox/Mg Hydrox/Simet LIQ* 30 ML UDC PO PRN ×2 (08:50→17:17)
[2016-10-10] MEDS ORDERED: Nicotine GUM* 2 MG PO PRN (11:03)
--- NOTE | 2016-10-10 11:42 | PN ---
[facility]: Group Therapy Note - Service Type Service Type: [id number] Group Psychotherapy - Cognitive Behavioral Therapy (CBT): Patient presents with high volume of speech that impresses as being coherent within the context of self-report, but is tangential and off topic in group context. Concerns regarding disorganization of thought are apparent.
--- NOTE | 2016-10-10 13:03 | PN ---
Subjective - Subjective Service Type: [id number] Hosp care 15 min low complexity Subjective: Bill appears reality-focused today and no longer staring blankly or urinating on himself. When I ask what made him lose touch with sanity, he admits to self- discontinuing his medications approximately 10 days prior to admission. "I'm not going to do that again." He is somewhat fixated on clonazepam, which he receives as an outpatient. He denies SI or HI. Objective - Appearance Appearance: Well Developed/Nourished Grooming: Fairly Well Kept - Behavior Psychomotor Activities: Normal Exhibits Abnormal Movement: No - Attitude and Relatedness Attitude and Relatedness: Cooperative Eye Contact: Fair - Speech Quality: Unpressured Latencies: Normal Quantity: Appropriate - Mood Patient's Decription of Mood: "Anxious" - Affect Observed Affect: Tense Affect Consistent with: Dysphoria - Thought Process Patient's Thought Process: Coherent Thought Content: No Passive Wish, No Suicidal Planning, No Homicidal Ideation, No Paranoid Ideation - Sensorium Experiencing Hallucinations: No, Sensorium is Clear Type of Hallucinations: Visual: No, Auditory: No, Command: No - Level of Consciousness Level of Consciousness: Alert Orientation: Yes Intact, Yes Orientated to Time, Yes Orientated to Place, Yes Orientated to Person - Impulse Control Impulse Control: Tenuous - Insight and Judgement Insight and Judgement: Fair - Group Participation Particating in Group Activities: No - Medication Management Medication Management Adherence: Yes Assessment - Assessment Merits Inpatient Hospitalization: Consolidate Improvements, Pending Safe DC Plan Inpatient DSM-IV Dx: Unspecified Psychotic DO Clinical Impression: 50 y.o. single, white male with a history of psychosis, substance abuse and affective problems, known to this clinician from recent prior hospitalization on the [facility], who presents involuntarily on a 9.45 initiated by the [facility] due to confusion, disorganization and inability to care for himself in the community. Plan - Plan Treatment Plan: Name: BILL OLIVEROS Birthdate: 1965 [id number] Patient's psychosis appears resolved. Will need to observe over the weekend to assure no resumption of symptoms. We have resumed antidepressant therapy with fluoxetine, mirtazapine and bupropion XL. In addition we have added risperidone 2mg PO qhs. Restart clonazepam 1mg PO TID and target October 13 for discharge. Continued Medication Management: Start Medication Medications: Current Medications Acetaminophen (Tylenol Tab*) 650 mg PO Q4H PRN PRN Reason: PAIN or TEMP > 101 F Last Admin: 10/08/16 14:34 Dose: 650 mg Al Hydrox/Mg Hydrox/Simethicone (Maalox Plus*) 30 ml PO Q4H PRN PRN Reason: INDIGESTION Last Admin: 10/10/16 08:50 Dose: 30 ml Albuterol (Ventolin Hfa Inhaler*) 2 puff INH Q4H PRN PRN Reason: SOB/WHEEZING Amlodipine Besylate (Norvasc Tab*) 10 mg PO DAILY [facility] Last Admin: 10/10/16 08:23 Dose: Not Given Bupropion HCl (Bupropion Xl*) 300 mg PO DAILY [facility] Last Admin: 10/10/16 08:20 Dose: 300 mg Diphenhydramine HCl (Benadryl Po*) 25 mg PO Q6H PRN PRN Reason: AGITATION/ANXIETY/INSOMNIA Last Admin: 10/10/16 03:00 Dose: 25 mg Fluoxetine HCl (Prozac Cap*) 60 mg PO DAILY [facility] Last Admin: 10/10/16 08:20 Dose: 60 mg Metoprolol Tartrate (Lopressor Tab*) 25 mg PO BID [facility] Last Admin: 10/10/16 08:20 Dose: 25 mg Mirtazapine (Remeron Tab*) 45 mg PO BEDTIME [facility] Last Admin: 10/09/16 20:40 Dose: 45 mg Multivitamins (Theragran Tab*) 1 tab PO DAILY [facility] Last Admin: 10/10/16 08:20 Dose: 1 tab Nicotine (Nicotine Inhaler*) 10 mg INH Q2H PRN PRN Reason: CRAVING Nicotine Polacrilex (Nicotine Gum*) 2 mg PO Q2H PRN PRN Reason: CRAVING Omeprazole (Prilosec Cap*) 20 mg PO DAILY [facility] Last Admin: 10/10/16 08:20 Dose: 20 mg Risperidone (Risperdal*) 1 mg PO BEDTIME [facility] Last Admin: 10/09/16 20:41 Dose: Not Given - Discharge Plan Discharge Plan: Inpatient Hospitalization
[2016-10-10] MEDS: clonazePAM TAB(*) 1 MG PO PRN ×3 (13:21→23:04)
[2016-10-10] MEDS: Albuterol HFA INHALER* 8 gm MDI INH PRN ×2 (17:22→23:44)
[2016-10-10] MEDS: Acetaminophen TAB* 325 MG PO PRN (19:23)
[2016-10-10] MEDS: Mirtazapine TAB* 15 MG PO SCH (21:11)
[2016-10-10] MEDS: risperiDONE TAB* 1 MG PO SCH (21:12)
[2016-10-11] MEDS: Hemorrhoidal OINT TOPICAL PRN ×3 (00:58→13:13)
[2016-10-11] MEDS: diPHENhydraMINE PO* 25 MG PO PRN ×2 (01:07→22:06)
[2016-10-11] MEDS: clonazePAM TAB(*) 1 MG PO PRN ×4 (04:50→20:01)
[2016-10-11] MEDS: Metoprolol Tartrate TAB* 25 MG PO SCH ×2 (09:37→20:00)
[2016-10-11] MEDS: FLUoxetine CAP* 20 MG PO SCH (09:37)
[2016-10-11] MEDS: BuPROPion XL* 300 MG TAB.XL PO SCH (09:37)
[2016-10-11] MEDS: Omeprazole CAP* 20 MG PO SCH (09:38)
[2016-10-11] MEDS: amLODIPine TAB* 5 MG PO SCH (09:38)
[2016-10-11] MEDS: Vitamin THERAPEUTIC TAB PO SCH (09:38)
[2016-10-11] MEDS ORDERED: Mouth Piece, Nicotine* 1 EACH CARTRIDGE ONE (11:03)
[2016-10-11] MEDS: Nicotine Inhaler* 10 MG AMP INH PRN ×3 (11:04→20:36)
[2016-10-11] MEDS: Al Hydrox/Mg Hydrox/Simet LIQ* 30 ML UDC PO PRN (11:49)
--- NOTE | 2016-10-11 13:21 | PN ---
Subjective - Subjective Service Type: [id number] Hosp care 15 min low complexity Subjective: Bill continues to be attending to reality and we observe no further catatonia or confusion. He remains continent of urine for past 2 days. He does c/o bright red blood per rectum and requests a GI consult. The patient would appear to be back to his baseline. He is attempting to get me to increase his clonazepam from TID to QID dosing, despite his history of abusing this substance. "Come on! I'm in a controlled setting. It wears off after only 4 hours for me." He denies SI or HI. Objective - Appearance Appearance: Well Developed/Nourished Dysmorphic Features: No Hygiene: Normal Grooming: Fairly Well Kept - Behavior Psychomotor Activities: Normal Exhibits Abnormal Movement: No - Attitude and Relatedness Attitude and Relatedness: Needy Eye Contact: Fair - Speech Quality: Unpressured Latencies: Normal Quantity: Appropriate - Mood Patient's Decription of Mood: "Anxious" - Affect Observed Affect: Tense Affect Consistent with: Dysphoria - Thought Process Patient's Thought Process: Coherent, Goal Directed Thought Content: No Passive Wish, No Suicidal Planning, No Homicidal Ideation, No Paranoid Ideation - Sensorium Experiencing Hallucinations: No, Sensorium is Clear Type of Hallucinations: Visual: No, Auditory: No, Command: No - Level of Consciousness Level of Consciousness: Alert Orientation: Yes Intact, Yes Orientated to Time, Yes Orientated to Place, Yes Orientated to Person - Impulse Control Impulse Control: Tenuous - Insight and Judgement Insight and Judgement: Poor - Group Participation Particating in Group Activities: No - Medication Management Medication Management Adherence: Yes Assessment - Assessment Merits Inpatient Hospitalization: Consolidate Improvements, Pending Safe DC Plan Inpatient DSM-IV Dx: Unspecified Psychotic DO Clinical Impression: 50 y.o. single, white male with a history of psychosis, substance abuse and affective problems, known to this clinician from recent prior hospitalization on the BSU, who presents involuntarily on a 9.45 initiated by the [facility] due to confusion, disorganization and inability to care for himself in the community. Plan - Plan Treatment Plan: Name: BILL OLIVEROS Birthdate: 1965 [id number] Patient's psychosis appears resolved. Will need to observe over the weekend to assure no resumption of symptoms. We have resumed antidepressant therapy with fluoxetine, mirtazapine and bupropion XL. Patient resistant to addition of risperidone so we will discontinue this. Restart clonazepam 1mg PO TID and target Thursday, October 13 for discharge. Hospitalist consult for hematochezia. Continued Medication Management: Continue Outpt Medication Medications: Current Medications Acetaminophen (Tylenol Tab*) 650 mg PO Q4H PRN PRN Reason: PAIN or TEMP > 101 F Last Admin: 10/10/16 19:23 Dose: 650 mg Al Hydrox/Mg Hydrox/Simethicone (Maalox Plus*) 30 ml PO Q4H PRN PRN Reason: INDIGESTION Last Admin: 10/11/16 11:49 Dose: 30 ml Albuterol (Ventolin Hfa Inhaler*) 2 puff INH Q4H PRN PRN Reason: SOB/WHEEZING Last Admin: 10/10/16 23:44 Dose: 2 puff Amlodipine Besylate (Norvasc Tab*) 10 mg PO DAILY [facility] Last Admin: 10/11/16 09:38 Dose: Not Given Bupropion HCl (Bupropion Xl*) 300 mg PO DAILY [facility] Last Admin: 10/11/16 09:37 Dose: 300 mg Clonazepam (Klonopin Tab(*)) 1 mg PO TID PRN PRN Reason: AGITATION/ANXIETY/INSOMNIA Last Admin: 10/11/16 09:41 Dose: 1 mg Diphenhydramine HCl (Benadryl Po*) 25 mg PO Q6H PRN PRN Reason: AGITATION/ANXIETY/INSOMNIA Last Admin: 10/11/16 01:07 Dose: 25 mg Fluoxetine HCl (Prozac Cap*) 60 mg PO DAILY [facility] Last Admin: 10/11/16 09:37 Dose: 60 mg Metoprolol Tartrate (Lopressor Tab*) 25 mg PO BID [facility] Last Admin: 10/11/16 09:37 Dose: 25 mg Mirtazapine (Remeron Tab*) 45 mg PO BEDTIME [facility] Last Admin: 10/10/16 21:11 Dose: 45 mg Multivitamins (Theragran Tab*) 1 tab PO DAILY [facility] Last Admin: 10/11/16 09:38 Dose: 1 tab Nicotine (Nicotine Inhaler*) 10 mg INH Q2H PRN PRN Reason: CRAVING Last Admin: 10/11/16 11:04 Dose: 10 mg Nicotine Polacrilex (Nicotine Gum*) 2 mg PO Q2H PRN PRN Reason: CRAVING Omeprazole (Prilosec Cap*) 20 mg PO DAILY [facility] Last Admin: 10/11/16 09:38 Dose: 20 mg Phenyleph/Shark Oil/Min Oil/Petrol (Preparation H*) 1 applic TOPICAL QID PRN PRN Reason: ANAL IRRITATION Last Admin: 10/11/16 13:13 Dose: 1 applic - Discharge Plan Discharge Plan: Outpatient Follow Up Outpatient Program: [facility]
[2016-10-11] MEDS: Lidocaine 5% OINT TOPICAL SCH ×2 (17:21→20:57)
[2016-10-11] MEDS: Hydrocortisone SUPP* 25 MG SUPP (2.5%) PR SCH ×2 (17:22→20:57)
[2016-10-11] MEDS: Albuterol HFA INHALER* 8 gm MDI INH PRN (17:22)
[2016-10-11] MEDS: Mirtazapine TAB* 15 MG PO SCH (19:59)
--- NOTE | 2016-10-11 22:43 | CONS ---
CC: Dr. Ortega CONSULTATION REPORT: DATE OF CONSULTATION: 10/11/16 REQUESTING PROVIDER: Dr. Ortega. CONSULTING PROVIDER: JANELLE Espinoza SUPERVISING PHYSICIAN: Destinee Falk DO CHIEF COMPLAINT: Rectal bleeding. HISTORY OF PRESENT ILLNESS: This is a 50-year-old gentleman with a history of GERD, asthma, as well as hypertension who is a current patient in the mental health unit after presenting with catatonia and being treated for an unspecified psychotic disorder. Hospitalist group was asked to consult as the patient was complaining of bright red blood per rectum. The patient states that he has a lifelong history of hemorrhoids and intermittent bleeding associated with abdominal discomfort. He states that often times when he gets anxious or excited, those symptoms manifest themselves with increased abdominal pain. Over the last 3 to 4 days, he has noted bleeding with each bowel movements and he has been wearing a double Depends in order to protect his clothing. He states that the bleeding has been associated with diarrhea and some abdominal discomfort. No vomiting and some occasional mild nausea. He also complains of rather severe and constant rectal pain which is worse when sitting. He states that his hemorrhoids had previously been evaluated, but no surgical intervention was indicated at that time. The patient states that history of treatment has been with [id number] preparations. PAST MEDICAL HISTORY: 1. Psychotic disorder. 2. Asthma. 3. GERD. 4. Hypertension. 5. Hemorrhoids. ACTIVE MEDICATIONS: 1. Acetaminophen 650 mg p.o. q.4 hours as needed for pain. 2. Albuterol inhaler 2 puffs inhaled q.4 hours as needed for shortness of breath. 3. Bupropion 300 mg p.o. daily. 4. Fluoxetine 60 mg p.o. daily. 5. Metoprolol tartrate 25 mg p.o. twice daily. 6. Mirtazapine 45 mg p.o. at bedtime. 7. Nicotine gum 2 mg p.o. q.2 hours as needed for nicotine craving. 8. Nicotine inhaler 10 mg inhaled q.2 hours as needed for nicotine craving. 9. Omeprazole 20 mg p.o. daily. 10. Multivitamin 1 tablet p.o. daily. 11. Amlodipine 10 mg p.o. daily. 12. Clonazepam 1 mg p.o. t.i.d. as needed for severe anxiety. 13. Diphenhydramine 25 mg p.o. q.6 hours as needed for agitation. PHYSICAL EXAM: Most recent vitals: Temperature 97.5 degrees Fahrenheit, pulse 81 beats per minute, respiratory rate 16, oxygen saturation 100% on room air, blood pressure 133/66 mmHg. General: This is a pleasant 50-year-old gentleman who is interactive and smiling. Respiratory: Lungs are clear to auscultation without wheezes, crackles or rhonchi. Cardiovascular: Heart has a regular rate and rhythm without murmurs, rubs, or gallops. Abdomen: Abdomen is soft and nontender to palpation. Rectal Exam: No active bleeding. No fissure or external hemorrhoids appreciated, but tender to palpation. No abscess pocket appreciated. DIAGNOSTIC STUDIES/LAB DATA: Recent labs from 10/07/16: CBC shows white blood cell count 12,900, hemoglobin 13.7 mg/dL, and platelet count of 283,000. Comprehensive metabolic panel shows sodium of 130, potassium 3.8 mmol/L, bicarb 23, BUN 40, creatinine 1.04, glucose 113, total bilirubin 1.6. Transaminases within normal limits. IMAGING: Chest x-ray, no acute process. CT of the brain shows no acute process. ASSESSMENT AND PLAN: This is a 50-year-old gentleman who is a current patient in the mental health unit who the hospitalist group has been asked to evaluate for rectal bleeding. 1. Bright red blood per rectum - the patient reports a known history of hemorrhoids and certainly his history of bright red blood per rectum associated with rectal pain is consistent with this. His external rectal exam was unremarkable without evidence of external hemorrhoid or fissure. I recommend treating with hydrocortisone suppositories and as-needed lidocaine for symptomatic relief. A repeat CBC has also been ordered to evaluate for severity of his blood loss. 2. Psychotic disorder - further treatment per Psychiatry. 3. Asthma - no evidence of acute exacerbation. I recommend continuing with p.r.n. albuterol. 4. Hypertension - the patient is normotensive. 5. Code status - the patient is full code. 6. DVT prophylaxis - the patient is ambulatory and no additional chemical prophylaxis was indicated at this time. DISPOSITION: Disposition: Hospitalist group will follow up with this patient in regards to response to recommended treatment above. Disposition per psychiatrist. JANELLE ESPINOZA [id number]/[facility] #: [id number] [facility]ITAL[facility]
[2016-10-12] MEDS: clonazePAM TAB(*) 1 MG PO PRN ×3 (01:48→14:18)
[2016-10-12] MEDS: Lidocaine 5% OINT TOPICAL SCH ×4 (02:56→20:11)
[2016-10-12] MEDS: Albuterol HFA INHALER* 8 gm MDI INH PRN ×2 (05:03→08:32)
[2016-10-12] MEDS: FLUoxetine CAP* 20 MG PO SCH (08:16)
[2016-10-12] MEDS: Omeprazole CAP* 20 MG PO SCH (08:17)
[2016-10-12] MEDS: Metoprolol Tartrate TAB* 25 MG PO SCH ×2 (08:17→20:06)
[2016-10-12] MEDS: BuPROPion XL* 300 MG TAB.XL PO SCH (08:17)
[2016-10-12] MEDS: Vitamin THERAPEUTIC TAB PO SCH (08:17)
[2016-10-12] MEDS: Hydrocortisone SUPP* 25 MG SUPP (2.5%) PR SCH ×2 (08:18→20:05)
[2016-10-12] MEDS: amLODIPine TAB* 5 MG PO SCH (09:00)
[2016-10-12] MEDS: Nicotine Inhaler* 10 MG AMP INH PRN ×2 (09:55→15:39)
--- NOTE | 2016-10-12 11:32 | PN ---
Subjective Date of Service: 10/12/16 Interval History: Patient was evaluated yesterday for c/o rectal bleeding, see H&P for details. He was prescribed Anusol suppositories and lidocaine ointment for internal hemorrhoids. Patient reports that the volume bleeding has improved, as has the associated pain. He denies any new complaints this morning. Objective Active Medications: Acetaminophen (Tylenol Tab*) 650 mg PO Q4H PRN PRN Reason: PAIN or TEMP > 101 F Last Admin: 10/10/16 19:23 Dose: 650 mg Al Hydrox/Mg Hydrox/Simethicone (Maalox Plus*) 30 ml PO Q4H PRN PRN Reason: INDIGESTION Last Admin: 10/11/16 11:49 Dose: 30 ml Albuterol (Ventolin Hfa Inhaler*) 2 puff INH Q4H PRN PRN Reason: SOB/WHEEZING Last Admin: 10/12/16 08:32 Dose: 2 puff Amlodipine Besylate (Norvasc Tab*) 10 mg PO DAILY [facility] Last Admin: 10/12/16 09:00 Dose: Not Given Bupropion HCl (Bupropion Xl*) 300 mg PO DAILY [facility] Last Admin: 10/12/16 08:17 Dose: 300 mg Clonazepam (Klonopin Tab(*)) 1 mg PO TID PRN PRN Reason: AGITATION/ANXIETY/INSOMNIA Last Admin: 10/12/16 01:48 Dose: 1 mg Diphenhydramine HCl (Benadryl Po*) 25 mg PO Q6H PRN PRN Reason: AGITATION/ANXIETY/INSOMNIA Last Admin: 10/11/16 22:06 Dose: 25 mg Fluoxetine HCl (Prozac Cap*) 60 mg PO DAILY [facility] Last Admin: 10/12/16 08:16 Dose: 60 mg Hydrocortisone (Anusol Hc Supp*) 25 mg NJ BID [facility] Last Admin: 10/12/16 08:18 Dose: 25 mg Lidocaine (Xylocaine 5% Oint*) 1 applic TOPICAL TID [facility] Last Admin: 10/12/16 08:17 Dose: 1 applic Metoprolol Tartrate (Lopressor Tab*) 25 mg PO BID [facility] Last Admin: 10/12/16 08:17 Dose: 25 mg Mirtazapine (Remeron Tab*) 45 mg PO BEDTIME [facility] Last Admin: 10/11/16 19:59 Dose: 45 mg Multivitamins (Theragran Tab*) 1 tab PO DAILY [facility] Last Admin: 10/12/16 08:17 Dose: 1 tab Nicotine (Nicotine Inhaler*) 10 mg INH Q2H PRN PRN Reason: CRAVING Last Admin: 10/12/16 09:55 Dose: 10 mg Nicotine Polacrilex (Nicotine Gum*) 2 mg PO Q2H PRN PRN Reason: CRAVING Last Admin: 10/11/16 15:40 Dose: 2 mg Omeprazole (Prilosec Cap*) 20 mg PO DAILY [facility] Last Admin: 10/12/16 08:17 Dose: Not Given Phenyleph/Shark Oil/Min Oil/Petrol (Preparation H*) 1 applic TOPICAL QID PRN PRN Reason: ANAL IRRITATION Last Admin: 10/11/16 13:13 Dose: 1 applic Quetiapine Fumarate (Seroquel Tab*) 100 mg PO BEDTIME [facility] Vital Signs: Temp Pulse Resp BP Pulse Ox 98.6 F 81 16 119/85 100 10/12/16 07:45 10/12/16 07:45 10/12/16 07:45 10/12/16 07:45 10/12/16 07:45 Oxygen Devices in Use Now: None Appearance: Well appearing middle aged gentleman in NAD. Full exam was not completed today Result Diagrams: 10/07/16 12:52 10/07/16 12:52 Additional Lab and Data: . Assess/Plan/Problems-Billing Assessment: This is a 50 yo gentleman with h/o hemorrhoids, GERD, asthma and HTN who currently being treated for psychosis by psychiatry. Hospitalist group has been asked to evaluate for c/o rectal bleeding. - Patient Problems (1) Psychosis Comment: Treatment per psychiatry (2) Rectal bleeding Comment: Secondary to internal hemorrhoids Noted improvement with Anusol suppositories and lidocaine Recommend continuing above treatment until bleeding and pain completely resolve (3) HTN (hypertension) Comment: Normotensive Cont home antihypertensives (4) Asthma Comment: No acute exacerbation Cont usual home inhaled medications (5) GERD (gastroesophageal reflux disease) Comment: Cont PPI Status and Disposition: Dispo per psychiatry. Hospitalist group will sign off at this time, but we are happy to re-evaluate if necessary. Please see recommendations above.
[2016-10-12] MEDS: Al Hydrox/Mg Hydrox/Simet LIQ* 30 ML UDC PO PRN (17:59)
[2016-10-12] MEDS: Mirtazapine TAB* 15 MG PO SCH (20:05)
[2016-10-12] MEDS ORDERED: QUEtiapine TAB* 100 MG PO SCH (21:00)
[2016-10-13] MEDS: clonazePAM TAB(*) 1 MG PO PRN ×2 (00:12→08:09)
[2016-10-13] MEDS: Acetaminophen TAB* 325 MG PO PRN (04:58)
[2016-10-13] MEDS: diPHENhydraMINE PO* 25 MG PO PRN (04:59)
[2016-10-13 07:37] VITALS: BP 137/83
[2016-10-13] MEDS: Hydrocortisone SUPP* 25 MG SUPP (2.5%) PR SCH (08:08)
[2016-10-13] MEDS: amLODIPine TAB* 5 MG PO SCH (08:10)
[2016-10-13] MEDS: Omeprazole CAP* 20 MG PO SCH (08:11)
[2016-10-13] MEDS: Lidocaine 5% OINT TOPICAL SCH (08:11)
[2016-10-13] MEDS: FLUoxetine CAP* 20 MG PO SCH (08:11)
[2016-10-13] MEDS: Metoprolol Tartrate TAB* 25 MG PO SCH (08:11)
[2016-10-13] MEDS: BuPROPion XL* 300 MG TAB.XL PO SCH (08:11)
[2016-10-13] MEDS: Vitamin THERAPEUTIC TAB PO SCH (08:12)
[2016-10-13] MEDS: Albuterol HFA INHALER* 8 gm MDI INH PRN (08:14)
[2016-10-13] MEDS: Nicotine Inhaler* 10 MG AMP INH PRN (10:02)
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
== END 2016-10-13 13:00 | disposition home or self-care (01) | DRG 751 ==
LOC: ED 10:55 → BSU 18:33 → ED 18:54
PROVIDERS: ADMIT Psychiatry & Neurology Psychiatry; ATTEND Psychiatry & Neurology Psychiatry
DX: F29 Unspecified psychosis not due to a substance or known physiological condition (principal); I10 Essential (primary) hypertension; F15.10 Other stimulant abuse, uncomplicated; F32.9 Major depressive disorder, single episode, unspecified; K21.9 Gastro-esophageal reflux disease without esophagitis; J45.909 Unspecified asthma, uncomplicated; F17.210 Nicotine dependence, cigarettes, uncomplicated; Z79.899 Other long term (current) drug therapy; Z88.8 Allergy status to other drugs, medicaments and biological substances; Z81.1 Family history of alcohol abuse and dependence; Z81.8 Family history of other mental and behavioral disorders; K64.8 Other hemorrhoids
CPT/HCPCS: 36415; 70450; 71020; 80053; 80320; 80329; 84443; 85025; 90853; 93005; 99222; 99231; 99238; A9270-GY; G0480; J1630; J2060